=== PATIENT | female | born 1960 | race Caucasian/White ===

== ENCOUNTER 2016-05-08 12:47 | Inpatient (IN) | payer MEDICAID ==
[~2016-05-08] VITALS: Ht 152.4 cm; Wt 116.0 kg
[~2016-05-08 12:47] MED LIST: ASPI-664 PO; ATOR20TA38 PO; CARV3.12 PO; CYCL-319 PO; FURO20TA3 PO; HYDR-902 PO; IBUP800T25 PO; LISI-524 PO; SPIR25TA PO; TICA90TA PO
[2016-05-08] MEDS ORDERED: ALBUTEROL 0.5% (NEB) 2.5 MG/0.5 ML AMP INH STA (17:03)
[2016-05-08] MEDS ORDERED: FUROSEMIDE 40 MG INJ IV STA (17:03)
[2016-05-08] MEDS ORDERED: NITROGLYCERIN 2% 1 GM OINT PKT TD STA (17:03)
--- NOTE | 2016-05-08 17:19 | ERA ---
ER Documentation Chief Complaint Date/Time DATE: 05/08/16 TIME: 17:12 Chief Complaint sob since yesterday HPI 55-year-old female with a history of hypertension, dyslipidemia, congestive heart failure, non-ST segment elevation myocardial infarction status post PCI, asthma and morbid obesity ambulatory to the ED complaining of a 1 day history increasing shortness of breath, orthopnea and exertional dyspnea. Increasing bilateral lower extremity swelling but no pain. Denies chest pain or palpitations. No URI symptoms or cough. Denies abdominal pain, nausea, vomiting, diarrhea or constipation. Denies dysuria, polyuria, hematuria or flank pain. No fevers or chills. She admits to running out of her medications several days ago. ROS All systems reviewed and are negative except as per history of present illness. Medications Home Meds Discontinued Scripts Hydrocodone/Acetaminophen ([place] 10-325 Tablet) 1 Each Tablet, 1 TAB PO Q6H Y for PAIN, #20 TAB Prov:ALYX STORM PA-C 01/12/16 Ibuprofen* (Motrin*) 800 Mg Tab, 800 MG PO Q6, #30 TAB Prov:ALYX STORM PA-C 01/12/16 Cyclobenzaprine Hcl* (Cyclobenzaprine Hcl*) 10 Mg Tablet, 10 MG PO QHS, #20 TAB Prov:ALYX STORM PA-C 01/12/16 Furosemide* (Furosemide*) 20 Mg Tablet, 20 MG PO BID for 90 Days, TAB Prov:DIANA HERMOSILLO 06/30/14 Ticagrelor* (Brilinta*) 90 Mg Tablet, 90 MG PO BID for 90 Days, 3 Refills Prov:DIANA HERMOSILLO 06/30/14 Spironolactone* (Aldactone*) 25 Mg Tab, 25 MG PO DAILY for 90 Days Prov:DIANA HERMOSILLO 06/30/14 Lisinopril* (Zestril*) 10 Mg Tab, 10 MG PO BID for 90 Days Prov:DIANA HERMOSILLO 06/30/14 Carvedilol* (Coreg*) 3.125 Mg Tab, 3.125 MG PO BID for 90 Days Prov:DIANA HERMOSILLO 06/30/14 Aspirin* (Aspirin* EC) 81 Mg Tabec, 81 MG PO DAILY for 90 Days Prov:DIANA HERMOSILLO 06/30/14 Atorvastatin Calcium* (Atorvastatin Calcium*) 20 Mg Tab, 40 MG PO HS for 90 Days Prov:DIANA HERMOSILLO 06/30/14 Allergies Allergies: Coded Allergies: No Known Allergy (Unverified , 05/08/16) PMhx/Soc Reviewed in chart. As per HPI. History of Surgery: Yes (Ceasarean section x 2) Anesthesia Reaction: No Hx Neurological Disorder: No Hx Respiratory Disorders: Yes (asthma) Hx Cardiac Disorders: Yes (cardiac condition/ htn) Hx Psychiatric Problems: No Hx Miscellaneous Medical Probl: Yes Hx Alcohol Use: No Hx Substance Use: No Hx Tobacco Use: No Smoking Status: Never smoker FmHx No coronary artery disease or cancer Physical Exam Vitals Vital Signs Date Time Temp Pulse Resp B/P Pulse Ox O2 Delivery O2 Flow Rate FiO2 05/08/16 18:05 98.3 83 20 155/83 100 Venturi Mask 10.0 05/08/16 17:31 Venti Mask 8 05/08/16 17:22 62 18 100 Nasal Cannula 4.0 05/08/16 16:46 78 18 149/63 96 Room Air 05/08/16 12:57 98.1 77 20 126/71 93 Physical Exam Const: Alert, mild respiratory distress. Head: Atraumatic Eyes: Normal Conjunctiva. Mild periorbital swelling ENT: Normal External Ears, Nose and Mouth. Neck: Full range of motion. Nontender. No stridor. Resp: Breath sounds diminished bilaterally with crackles at the bases. Cardio: Regular rate and rhythm, no murmurs Abd: Soft, obese, non tender, non distended. Normal bowel sounds Skin: No petechiae or rashes Back: No midline or flank tenderness Ext: Bilateral lower extremities: 2+ pitting edema. Neur: Awake and alert. No focal deficit observed. Psych: Normal Mood and Affect. Patient does not appear anxious or depressed. Result Diagram: 05/08/16 1730 05/08/16 1730 Results 24 hrs Laboratory Tests Test 05/08/16 17:30 White Blood Count 7.810^3/ul Red Blood Count 4.0410^6/ul Hemoglobin 12.4g/dl Hematocrit 42.6% Mean Corpuscular Volume 105.4fl Mean Corpuscular Hemoglobin 30.7pg Mean Corpuscular Hemoglobin Concent 29.1g/dl Red Cell Distribution Width 13.6% Platelet Count 69903^3/UL Mean Platelet Volume 11.3fl Neutrophils % 59.2% Lymphocytes % 27.7% Monocytes % 9.8% Eosinophils % 2.3% Basophils % 0.5% Nucleated Red Blood Cells % 0.0/100WBC Neutrophils # 4.610^3/ul Lymphocytes # 2.210^3/ul Monocytes # 0.810^3/ul Eosinophils # 0.210^3/ul Basophils # 0.010^3/ul Nucleated Red Blood Cells # 0.010^3/ul Prothrombin Time 11.9Sec Prothrombin Time Ratio 0.9 INR International Normalized Ratio 0.88 Activated Partial Thromboplast Time 27.3Sec Sodium Level 142mmol/L Potassium Level 4.7mmol/L Chloride Level 101mmol/L Carbon Dioxide Level 35mmol/L Anion Gap 11 Blood Urea Nitrogen 18mg/dl Creatinine 0.67mg/dl Glucose Level 98mg/dl Calcium Level 8.1mg/dl Total Bilirubin 0.2mg/dl Direct Bilirubin 0.00mg/dl Indirect Bilirubin 0.2mg/dl Aspartate Amino Transf (AST/SGOT) 28IU/L Alanine Aminotransferase (ALT/SGPT) 49IU/L Alkaline Phosphatase 150IU/L Troponin I 0.099ng/ml B-Type Natriuretic Peptide 406PG/ML Total Protein 7.4g/dl Albumin 3.7g/dl Globulin 3.70g/dl Albumin/Globulin Ratio 1.00 Current Medications Medications (Trade) Dose Ordered Sig/Valdemar Route PRN Reason Start Time Stop Time Status Last Admin Dose Admin Albuterol (Proventil 0.5% (Neb)) 10 mg ONCE STAT INH 05/08/16 17:03 05/08/16 17:10 DC 05/08/16 17:21 Nitroglycerin (Nitroglycerin 2% Oint) 1 inch ONCE STAT TD 05/08/16 17:03 05/08/16 17:10 DC 05/08/16 17:44 Furosemide (Lasix) 20 mg ONCE STAT IV 05/08/16 17:03 05/08/16 17:10 DC 05/08/16 17:44 Captopril (Capoten) 12.5 mg ONCE STAT PO 05/08/16 17:03 05/08/16 17:04 Cancel Captopril (Capoten) 12.5 mg ONCE ONCE PO 05/08/16 18:00 05/08/16 18:01 DC 05/08/16 17:45 RHYTHM STRIP INTERPRETATION: Time: 17:00. Sinus rhythm. Ventricular rate 64. No ectopy. Indication: Shortness of breath. EKG: Time: 17:15. Sinus rhythm. Ventricular rate 69, normal [place] and QRS intervals. No acute ST segment elevation or depression. No axis deviation or ectopy. EP Impression: Normal EKG IMAGING: PROCEDURE: CR, chest CLINICAL INDICATION: Shortness of breath. TECHNIQUE: AP chest. COMPARISON: Chest, 07/01/2014. FINDINGS: The heart is moderately enlarged with pulmonary venous congestion. There is no acute infiltrate in the lungs. No pleural effusion. IMPRESSION: 1. Moderate cardiomegaly with pulmonary venous congestion. RPTAT: GG .Jose Antonio Forde MD, MD Date Time Electronically viewed and signed by .Jose Antonio Forde MD, MD on 05/08/2016 19:04 .Y/ Procedures/MDM DOCUMENTS REVIEWED: ED nurse, prior ED, prior records ED COURSE: Nebulized albuterol, captopril 12.5 mg orally, nitro paste 1 inch, Lasix 20 mg IV. REEXAMINATION/REEVALUATION: Time: 19:00. Improved but still complaining of dyspnea at rest. MEDICAL DECISION MAKIN-year-old female with a history of hypertension, dyslipidemia, congestive heart failure, non-ST segment elevation myocardial infarction status post PCI, asthma and morbid obesity ambulatory to the ED complaining of a 1 day history increasing shortness of breath, orthopnea and exertional dyspnea. Presentation consistent with acute exacerbation of chronic congestive heart failure. Improved with preload/afterload reduction, nitrates and nebulized albuterol but still with dyspnea at rest. No ischemic EKG changes , elevated troponin, chest pain or other signs of acute coronary syndrome. Doubt pulmonary embolism. Admit to telemetry for diuresis, further evaluation and management. Counseled patient regarding diagnosis, diagnostic results and plan for admission. CALLS/CONSULTS: Time 19:50, Dr. Farmer. PATIENT CARE TRANSITIONED: Time: 19:50, Dr. Farmer. Departure Diagnosis: Primary Impression: Congestive heart failure Qualified Code: I50.9 - Acute on chronic congestive heart failure, unspecified congestive heart failure type Additional Impressions: Acute dyspnea Dyslipidemia Coronary artery disease Qualified Code: I25.10 - Coronary artery disease involving [place] heart without angina pectoris, unspecified vessel or lesion type History of heart artery stent Condition: Serious WLII SYKES MD May 08, 2016 17:19
[2016-05-08 17:38] LABS: ADD SCAN DIFF NO
[2016-05-08 17:39] LABS: BASOPHILS % 0.5 % (0.0-2.0); EOSINOPHILS # 0.2 10^3/ul (0.0-0.5); EOSINOPHILS % 2.3 % (0.0-7.0); HEMATOCRIT 42.6 % (37.0-47.0); HEMOGLOBIN 12.4 g/dl (12.0-16.0); LYMPHOCYTES # 2.2 10^3/ul (0.8-2.9); LYMPHOCYTES % 27.7 % (15.0-51.0); MEAN CORPUSCULAR HEMOGLOBIN 30.7 pg (29.0-33.0); MEAN CORPUSCULAR HGB CONC 29.1 g/dl (32.0-37.0); MEAN CORPUSCULAR VOLUME 105.4 fl (82.0-101.0); MEAN PLATELET VOLUME 11.3 fl (7.4-10.4); MONOCYTE # 0.8 10^3/ul (0.3-0.9); MONOCYTES % 9.8 % (0.0-11.0); NEUTROPHIL # 4.6 10^3/ul (1.6-7.5); NEUTROPHILS % 59.2 % (39.0-77.0); PLATELET COUNT 189 10^3/UL (140-415); RED BLOOD COUNT 4.04 10^6/ul (4.20-5.40); RED CELL DISTRIBUTION WIDTH 13.6 % (11.5-14.5); WHITE BLOOD COUNT 7.8 10^3/ul (4.8-10.8)
[2016-05-08 17:53] LABS: INR 0.88; PROTIME 11.9 Sec (12.2-14.2); PT RATIO 0.9
[2016-05-08 17:54] LABS: ALBUMIN 3.7 g/dl (3.3-4.9); PARTIAL THROMBOPLASTIN TIME 27.3 Sec (25.0-35.0)
[2016-05-08 17:55] LABS: POTASSIUM 4.7 mmol/L (3.5-5.1)
[2016-05-08 17:57] LABS: BILIRUBIN,INDIRECT 0.2 mg/dl (0-1.1); BILIRUBIN,TOTAL 0.2 mg/dl (0.2-1.3); CREATININE 0.67 mg/dl (0.44-1.00); TOTAL PROTEIN 7.4 g/dl (6.1-8.1)
[2016-05-08 17:58] LABS: CALCIUM 8.1 mg/dl (8.4-10.2)
[2016-05-08 18:05] VITALS: TEMP 98.3
[2016-05-08 18:08] LABS: TROPONIN-I 0.099 ng/ml (0.00-0.12)
--- NOTE | 2016-05-08 19:04 | RADRPT ---
PROCEDURE: CR, chest CLINICAL INDICATION: Shortness of breath. TECHNIQUE: AP chest. COMPARISON: Chest, 07/01/2014. FINDINGS: The heart is moderately enlarged with pulmonary venous congestion. There is no acute infiltrate in the lungs. No pleural effusion. IMPRESSION: 1. Moderate cardiomegaly with pulmonary venous congestion. RPTAT: GG .Jose Antonio Forde MD, MD Date Time Electronically viewed and signed by .Jose Antonio Forde MD, MD on 05/08/2016 19:04 .Y/
[2016-05-08] MEDS ORDERED: ACETAMINOPHEN 325 MG TAB PO PRN ×2 (20:30→21:30)
[2016-05-08] MEDS ORDERED: ONDANSETRON 4 MG INJ IV PRN (20:30)
--- NOTE | 2016-05-08 20:53 | HP ---
Date/Time of Note Date/Time of Note DATE: 05/08/16 TIME: 20:53 Assessment/Plan VTE Prophylaxis VTE Prophylaxis Intervention: other (Lovenox) Assessment/Plan Assessment/Plan 1) Congestive heart failure Qualified Code: I50.9 - Acute on chronic congestive heart failure, unspecified congestive heart failure type - Admit to Telemetry - Diuresis - AM Labs: CBC, BMP, Magnesium - Consider Cardiology Consult 2) Acute dyspnea - Expect continued improvement with continued diuresis - Patient is educated to always take her medications as prescribed and t not let them run out. 3) Fatigue, severe, concerning for ND since it is combined with upper back pain - Serial Troponins - TSH in AM 4) Coronary artery disease Qualified Code: I25.10 - Coronary artery disease involving [place] heart without angina pectoris, unspecified vessel or lesion type History of heart artery stent - CHD Profile in AM 5) Morbid Obesity HPI/ROS Admit Date/Time Admit Date/Time 02/07/172001 Hx of Present Illness Chief Complaint: Shortness of Breath HPI: Patient presented to the ER with increasing SOB since yesterday. She has been out of her medications for 3 to 4 days. Currently, she feels a little better since being treated in the ER, but she mentions that she is having pain in her upper back and that she feels extremely sleepy. However, she is not able to tell me about her heart problems. When I asked her if she had stents, placed through her groin and into the heart, she said yes. When I asked if she had been having any chest pain before that, she said no. Since patient is not clear about her history, I will use that obtained by the ER physician: hypertension, dyslipidemia, congestive heart failure, non-ST segment elevation myocardial infarction status post PCI, asthma and morbid obesity. Patient had complained about orthopnea and exertional dyspnea and increasing leg swelling as well as the SOB. She had no other complaints or concerns. Prior to my arrival in the ED, she was treated with Nebulized albuterol, captopril 12.5 mg orally, nitro paste 1 inch, Lasix 20 mg IV. ROS General: Admits: Denies: Fever, Chills, Poor Appetite, Generalized Body Aches Eyes: Admits: Denies: Blurry Vision, Double Vision HENT: Denies: Ear Pain/Pressure, Runny/Stuffy Nose, Sore Throat Cardiovascular: Admits: Leg Swelling Denies: Chest Pain, Palpitations Pulmonary: Admits: Shortness of Breath (improved) Denies: Cough, Wheeze, Gastrointestinal: Admits: Denies: Abdominal Pain, Nausea, Vomiting, Diarrhea Urogenital: Admits: Denies: Burning with Urination, Urinary Frequency Musculoskeletal: Admits: Denies: Joint Pain, Joint Swelling, Muscle Pain Neurological: Admits: Denies: Headache, Dizziness, Numbness, Tingling, Shooting Pains Integumentary: Admits: Denies: Rash, Itch PMH/Family/Social Past Medical History Asthma; HTN; "Cardiac Condition" Past Surgical History Section x 2 Family History Significant Family History: other (No CAD or Cancer) Social History Smoking Status: Never smoker Exam/Review of Systems Vital Signs Vitals Vital Signs Date Time Temp Pulse Resp B/P Pulse Ox O2 Delivery O2 Flow Rate FiO2 05/08/16 20:02 72 18 164/94 99 05/08/16 18:05 98.3 Venturi Mask 10.0 Exam Exam General: Morbidly obese Bulgarian-speaking female in no acute distress with O2 via NC in place. Eyes: Sclera White, EOMI HENT: Normocephalic/Atraumatic, External Ears/Nose Normal, Moist Mucus Membranes Neck: Supple, Trachea Midline Cardiovascular: Normal Rate, Normal Rhythm, Normal S1 and S2, No Murmur, No Extra Sounds Pulmonary: Clear to Auscultation Bilaterally, but decreased airflow throughout , minimal airflow appreciated in bases. Normal Respiratory Effort, No Rales, Rhonchi or Wheezes Gastrointestinal: Normoactive Bowel Sounds, Soft, Non-Tender/Non-Distended, No Hepatosplenomegaly Appreciated, No Pulsatile Masses Urogenital: Deferred Musculoskeletal: Normal Muscle Bulk and Tone Neurological: CN II - XII Grossly Intact, Non-Focal, Speech Normal Integumentary: Normal Moisture and Temperature, Good Turgor, No Jaundice, No Rash Lymphatic: No Cervical Lymphadenopathy Psychiatric: Appropriate Mood and Affect, Good Eye Contact Labs Result Diagram: 05/08/16172905/08/161729 Medications Medications Home Meds Discontinued Scripts Hydrocodone/Acetaminophen ([place] 10-325 Tablet) 1 Each Tablet, 1 TAB PO Q6H Y for PAIN, #20 TAB Prov:ALYX STORM PA-C 01/12/16 Ibuprofen* (Motrin*) 800 Mg Tab, 800 MG PO Q6, #30 TAB Prov:ALYX STORM PA-C 01/12/16 Cyclobenzaprine Hcl* (Cyclobenzaprine Hcl*) 10 Mg Tablet, 10 MG PO QHS, #20 TAB Prov:ALYX STORM PA-C 01/12/16 Furosemide* (Furosemide*) 20 Mg Tablet, 20 MG PO BID for 90 Days, TAB Prov:DIANA HERMOSILLO 06/30/14 Ticagrelor* (Brilinta*) 90 Mg Tablet, 90 MG PO BID for 90 Days, 3 Refills Prov:DIANA HERMOSILLO 06/30/14 Spironolactone* (Aldactone*) 25 Mg Tab, 25 MG PO DAILY for 90 Days Prov:DIANA HERMOSILLO 06/30/14 Lisinopril* (Zestril*) 10 Mg Tab, 10 MG PO BID for 90 Days Prov:DIANA HERMOSILLO 06/30/14 Carvedilol* (Coreg*) 3.125 Mg Tab, 3.125 MG PO BID for 90 Days Prov:DIANA HERMOSILLO 06/30/14 Aspirin* (Aspirin* EC) 81 Mg Tabec, 81 MG PO DAILY for 90 Days Prov:DIANA HERMOSILLO 06/30/14 Atorvastatin Calcium* (Atorvastatin Calcium*) 20 Mg Tab, 40 MG PO HS for 90 Days Prov:DIANA HERMOSILLO 06/30/14 Current Medications Medications (Trade) Dose Ordered Sig/Valdemar Route PRN Reason Start Time Stop Time Status Last Admin Dose Admin Albuterol (Proventil 0.5% (Neb)) 10 mg ONCE STAT INH 05/08/16 17:03 05/08/16 17:10 DC 05/08/16 17:21 Nitroglycerin (Nitroglycerin 2% Oint) 1 inch ONCE STAT TD 05/08/16 17:03 05/08/16 17:10 DC 05/08/16 17:44 Furosemide (Lasix) 20 mg ONCE STAT IV 05/08/16 17:03 05/08/16 17:10 DC 05/08/16 17:44 Captopril (Capoten) 12.5 mg ONCE STAT PO 05/08/16 17:03 05/08/16 17:04 Cancel Captopril (Capoten) 12.5 mg ONCE ONCE PO 05/08/16 18:00 05/08/16 18:01 DC 05/08/16 17:45 Procedures Procedures Laboratory Tests Test 05/08/16 17:30 White Blood Count 7.810^3/ul Red Blood Count 4.0410^6/ul Hemoglobin 12.4g/dl Hematocrit 42.6% Mean Corpuscular Volume 105.4fl Mean Corpuscular Hemoglobin 30.7pg Mean Corpuscular Hemoglobin Concent 29.1g/dl Red Cell Distribution Width 13.6% Platelet Count 45373^3/UL Mean Platelet Volume 11.3fl Neutrophils % 59.2% Lymphocytes % 27.7% Monocytes % 9.8% Eosinophils % 2.3% Basophils % 0.5% Nucleated Red Blood Cells % 0.0/100WBC Neutrophils # 4.610^3/ul Lymphocytes # 2.210^3/ul Monocytes # 0.810^3/ul Eosinophils # 0.210^3/ul Basophils # 0.010^3/ul Nucleated Red Blood Cells # 0.010^3/ul Prothrombin Time 11.9Sec Prothrombin Time Ratio 0.9 INR International Normalized Ratio 0.88 Activated Partial Thromboplast Time 27.3Sec Sodium Level 142mmol/L Potassium Level 4.7mmol/L Chloride Level 101mmol/L Carbon Dioxide Level 35mmol/L Anion Gap 11 Blood Urea Nitrogen 18mg/dl Creatinine 0.67mg/dl Glucose Level 98mg/dl Calcium Level 8.1mg/dl Total Bilirubin 0.2mg/dl Direct Bilirubin 0.00mg/dl Indirect Bilirubin 0.2mg/dl Aspartate Amino Transf (AST/SGOT) 28IU/L Alanine Aminotransferase (ALT/SGPT) 49IU/L Alkaline Phosphatase 150IU/L Troponin I 0.099ng/ml B-Type Natriuretic Peptide 406PG/ML Total Protein 7.4g/dl Albumin 3.7g/dl Globulin 3.70g/dl Albumin/Globulin Ratio 1.00 RHYTHM STRIP INTERPRETATION: Time: 17:00. Sinus rhythm. Ventricular rate 64. No ectopy. Indication: Shortness of breath. (Interpreted by ER Physician) EKG: Time: 17:15. Sinus rhythm. Ventricular rate 69, normal [place] and QRS intervals. No acute ST segment elevation or depression. No axis deviation or ectopy. EP Impression: Normal EKG (Interpreted by ER Physician) IMAGING: PROCEDURE: CR, chest CLINICAL INDICATION: Shortness of breath. TECHNIQUE: AP chest. COMPARISON: Chest, 07/01/2014. FINDINGS: The heart is moderately enlarged with pulmonary venous congestion. There is no acute infiltrate in the lungs. No pleural effusion. IMPRESSION: 1. Moderate cardiomegaly with pulmonary venous congestion. ESDRAS BUENROSTRO DO May 08, 2016 20:53 RHYTHM STRIP INTERPRETATION: Time: 17:00. Sinus rhythm. Ventricular rate 64. No ectopy. Indication: Shortness of breath. EKG: Time: 17:15. Sinus rhythm. Ventricular rate 69, normal SC and QRS intervals. No acute ST segment elevation or depression. No axis deviation or ectopy. EP Impression: Normal EKG IMAGING: PROCEDURE: CR, chest CLINICAL INDICATION: Shortness of breath. TECHNIQUE: AP chest. COMPARISON: Chest, 07/01/2014. FINDINGS: The heart is moderately enlarged with pulmonary venous congestion. There is no acute infiltrate in the lungs. No pleural effusion. IMPRESSION: 1. Moderate cardiomegaly with pulmonary venous congestion. ESDRAS BUENROSTRO DO May 08, 2016 20:53 RHYTHM STRIP INTERPRETATION: Time: 17:00. Sinus rhythm. Ventricular rate 64. No ectopy. Indication: Shortness of breath. EKG: Time: 17:15. Sinus rhythm. Ventricular rate 69, normal SC and QRS intervals. No acute ST segment elevation or depression. No axis deviation or ectopy. EP Impression: Normal EKG IMAGING: PROCEDURE: CR, chest CLINICAL INDICATION: Shortness of breath. TECHNIQUE: AP chest. COMPARISON: Chest, 07/01/2014. FINDINGS: The heart is moderately enlarged with pulmonary venous congestion. There is no acute infiltrate in the lungs. No pleural effusion.
[2016-05-08] MEDS ORDERED: NITROGLYCERIN (SL) 0.4 MG TAB SL PRN (21:30)
[2016-05-08] MEDS ORDERED: HYDROCODONE/APAP (5/325) TAB PO PRN (21:30)
[2016-05-08] MEDS ORDERED: NACL 0.9% 3 ML SYG IV SCH (21:30)
[2016-05-08] MEDS ORDERED: METOCLOPRAMIDE 10 MG INJ IV PRN (21:30)
[2016-05-08] MEDS ORDERED: LORAZEPAM 2 MG INJ IV PRN (21:30)
[2016-05-08] MEDS ORDERED: morphine 2 MG INJ IV PRN (21:30)
[2016-05-08] MEDS: FAMOTIDINE 20 MG TAB PO SCH (22:06)
[2016-05-08] MEDS ORDERED: FUROSEMIDE 20 MG INJ IV ONE (22:30)
[2016-05-08 23:44] VITALS: PULSE 67
[2016-05-09] VITALS (14 sets, daily range): BP systolic 116–138; BP diastolic 58–67; PULSE 40–99; RESP 16–20; Ht 152.4 cm; Wt 116.0 kg
[2016-05-09] MEDS ORDERED: FUROSEMIDE 20 MG INJ IM ONE (08:00)
[2016-05-09 08:15] LABS: ADD SCAN DIFF NO
[2016-05-09] MEDS: ENOXAPARIN 40 MG/0.4 ML SYG SC SCH (08:21)
[2016-05-09] MEDS: FAMOTIDINE 20 MG TAB PO SCH ×2 (08:21→21:18)
[2016-05-09 08:22] LABS: ABNORMAL IP MESSAGE 1; BASOPHIL # 0.1 10^3/ul (0.0-0.1); BASOPHILS % 0.6 % (0.0-2.0); EOSINOPHILS # 0.1 10^3/ul (0.0-0.5); EOSINOPHILS % 0.8 % (0.0-7.0); HEMATOCRIT 46.1 % (37.0-47.0); HEMOGLOBIN 12.9 g/dl (12.0-16.0); LYMPHOCYTES # 1.7 10^3/ul (0.8-2.9); LYMPHOCYTES % 18.6 % (15.0-51.0); MEAN CORPUSCULAR HEMOGLOBIN 29.6 pg (29.0-33.0); MEAN CORPUSCULAR VOLUME 105.7 fl (82.0-101.0); MEAN PLATELET VOLUME 11.5 fl (7.4-10.4); MONOCYTE # 0.6 10^3/ul (0.3-0.9); MONOCYTES % 6.4 % (0.0-11.0); NEUTROPHIL # 6.5 10^3/ul (1.6-7.5); NEUTROPHILS % 73.3 % (39.0-77.0); PLATELET COUNT 215 10^3/UL (140-415); RED BLOOD COUNT 4.36 10^6/ul (4.20-5.40); RED CELL DISTRIBUTION WIDTH 13.9 % (11.5-14.5); WHITE BLOOD COUNT 8.9 10^3/ul (4.8-10.8)
[2016-05-09 08:34] LABS: POTASSIUM 5.3 mmol/L (3.5-5.1)
[2016-05-09 08:36] LABS: CREATININE 0.69 mg/dl (0.44-1.00)
[2016-05-09 08:37] LABS: CALCIUM 8.7 mg/dl (8.4-10.2)
[2016-05-09 09:24] LABS: THYROID STIMULATING HORMONE 1.19 MIU/L (0.465-4.680)
--- NOTE | 2016-05-09 15:20 | CONS ---
Date/Time of Note Date/Time of Note DATE: 05/09/16 TIME: 15:15 Assessment/Plan Assessment/Plan Additional Assessment/Plan Chest x-ray was reviewed from today which is showing cardiomegaly with pulmonary edema. Assessment recommendations; 1. Patient admitted for D compensated CHF, out of medication for the last couple of days. Likely a contributing factor. 2. Morbid obesity. 3. Likely undiagnosed sleep apnea. Continue current treatment. She will need to have a sleep study done on outpatient basis. Start BiPAP overnight. Consultation Date/Type/Reason Admit Date/Time 02/07/172001 Date of Consultation: May 09, 2016 Type of Consultation: Pulmonary Reason for Consultation Pulmonary consultation requested for evaluation of shortness of breath. Next History presenting; patient is a 54-year-old lady who came into the emergency room yesterday with a few days history of increasing shortness of breath. Patient ran out of her medications 4 days ago. But she denies any chest pain, wheezing. Any fever or chills. Any cough or sputum production. By the time I saw the patient , she is sitting in a room in a chair. According to her she, is somewhat better since admission. Past medical history; 1. Morbid obesity. 2. CHF. 3. Likely underlying sleep apnea. 4. Hypertension. 5. History of 2. Medications; were reviewed. Allergies; are none. Next Social history; patient never smoked, no history of alcohol or drug abuse. Next Family history; patient has 2 children. Various family members of diabetes and hypertension in the family. Occupational history; patient is disabled. Review of systems; denies any headache, visual changes. Any sore throat, high fever, chills. Any hearing loss. Any seizures. Any chest pain, wheezing. Denies any sputum production. Complains of orthopnea. Come to the weight gain. Denies any abdominal pain, nausea vomiting. Any melena hematochezia. . Denies any urinary symptoms. Does complain of significant daytime sleepiness. General exam; young woman morbidly obese currently in no distress awake and alert. Social History Smoking Status: Never smoker Exam/Review of Systems Vital Signs Vitals Vital Signs Date Time Temp Pulse Resp B/P Pulse Ox O2 Delivery O2 Flow Rate FiO2 05/09/16 12:21 79 05/09/16 11:52 97.8 20 116/59 92 05/09/16 07:41 Nasal Cannula 3.0 Intake and Output 05/08/16 05/08/16 05/09/16 15:00 23:00 07:00 Intake Total 300 ml Balance 300 ml Exam HEENT examination; supple neck, JVD difficult to see because of short neck. No thyromegaly, no neck masses. No lymphadenopathy. Pharynx is clear. Patient has good dentition. Pharyngeal aperture is very small. Pupils are equal and reactive to light bilaterally. She has bilateral cataracts present patient also has bilateral pterygium present Chest examination; diminished breath sounds throughout. No additional. S1-S2 audible, no murmurs. Regular rhythm. Abdomen examination; grossly protuberant. Nontender. Bowel sounds audible. Extremity exam; no peripheral edema. No clubbing. Pulses 2+ bilaterally. 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 There is no motor deficit. Results Result Diagram: 05/09/16 0758 05/09/16 0758 Results 24 hrs Laboratory Tests Test 05/08/16 17:30 05/09/16 00:33 05/09/16 07:58 White Blood Count 7.8 8.9 Red Blood Count 4.04 L 4.36 Hemoglobin 12.4 12.9 Hematocrit 42.6 46.1 Mean Corpuscular Volume 105.4 H 105.7 H Mean Corpuscular Hemoglobin 30.7 29.6 Mean Corpuscular Hemoglobin Concent 29.1 L 28.0 L Red Cell Distribution Width 13.6 13.9 Platelet Count 189 215 Mean Platelet Volume 11.3 H 11.5 H Neutrophils % 59.2 73.3 Lymphocytes % 27.7 18.6 Monocytes % 9.8 6.4 Eosinophils % 2.3 0.8 Basophils % 0.5 0.6 Nucleated Red Blood Cells % 0.0 0.0 Neutrophils # 4.6 6.5 Lymphocytes # 2.2 1.7 Monocytes # 0.8 0.6 Eosinophils # 0.2 0.1 Basophils # 0.0 0.1 Nucleated Red Blood Cells # 0.0 0.0 Prothrombin Time 11.9 L Prothrombin Time Ratio 0.9 INR International Normalized Ratio 0.88 Activated Partial Thromboplast Time 27.3 Sodium Level 142 143 Potassium Level 4.7 5.3 H Chloride Level 101 100 Carbon Dioxide Level 35 H 34 H Anion Gap 11 14 Blood Urea Nitrogen 18 21 H Creatinine 0.67 0.69 Glucose Level 98 125 Calcium Level 8.1 L 8.7 Total Bilirubin 0.2 Direct Bilirubin 0.00 Indirect Bilirubin 0.2 Aspartate Amino Transf (AST/SGOT) 28 Alanine Aminotransferase (ALT/SGPT) 49 Alkaline Phosphatase 150 H Troponin I 0.099 0.123 *H 0.080 B-Type Natriuretic Peptide 406 H Total Protein 7.4 Albumin 3.7 Globulin 3.70 H Albumin/Globulin Ratio 1.00 Magnesium Level 2.0 Triglycerides Level 184 H Cholesterol Level 175 LDL Cholesterol, Calculated 80 HDL Cholesterol 58 Cholesterol/HDL Ratio 3.0 Thyroid Stimulating Hormone (TSH) 1.190 Medications Medications Current Medications Lorazepam (Ativan) 0.5 mg Q6H PRN IV ANXIETY; Start 05/08/16 at 21:30 Metoclopramide HCl (Reglan) 10 mg Q6H PRN IV NAUSEA AND/OR VOMITING; Start at 21:30 Nitroglycerin (Nitroglycerin (Sl Tab) 0.4 Mg) 1 tab Q5M PRN SL CHEST PAIN; Start 05/08/16 at 21:30 Acetaminophen (Tylenol Tab) 650 mg Q6H PRN PO PAIN LEVEL 1-3 OR FEVER; Start at 21:30 Acetaminophen/ Hydrocodone Bitart ([place] (5/325)) 1 tab Q6H PRN PO PAIN LEVEL 4 -6; Start 05/08/16 at 21:30 Morphine Sulfate (morphine) 2 mg Q4H PRN IV PAIN LEVEL 7-10; Start 05/08/16 at 21:30 Famotidine (Pepcid) 20 mg Q12 PO Last administered on 05/09/16 08:21; Admin Dose 20 MG; Start 05/08/16 at 21:30 Enoxaparin Sodium (Lovenox) 40 mg DAILY SC Last administered on 05/09/16 08:21 ; Admin Dose 40 MG; Start 05/09/16 at 09:00 FEDE MCGRATH May 09, 2016 15:20
[2016-05-09] MEDS ORDERED: ALBUTEROL 0.083% (NEB) 2.5 MG/3 ML AMP HHN PRN (16:00)
--- NOTE | 2016-05-09 16:35 | PN ---
DATE: 05/09/2016 SUBJECTIVE DATA: The patient still has dyspnea. Remains on supplemental oxygen. OBJECTIVE DATA: VITAL SIGNS: Temperature 97.8, pulse rate 79, respiratory rate 20, blood pressure 116/59, oxygen saturation 98% on low flow O2. GENERAL: This is a morbidly obese female lying in bed, somnolent. HEENT: Normocephalic and atraumatic. Eyes: Anicteric sclerae. Conjunctivae clear. ENT: Nasal septum is midline. Oral mucosa is dry. NECK: Short with increased neck circumference. Unable to visualize any neck veins. CARDIAC: Regular rate and rhythm with a grade II/ systolic ejection murmur heard at the left sternal border. ABDOMEN: Soft, nontender and nondistended. Bowel sounds hypoactive in all 4 quadrants. GENITOURINARY: Deferred. EXTREMITIES: No cyanosis, no clubbing. Bilateral lower extremity 1+ pitting edema. Peripheral pulses palpable. NEUROLOGIC: The patient is somnolent. Wakes up to call and answers questions. No focal deficits. LABORATORY AND DIAGNOSTIC DATA: WBC 8.9, hemoglobin 12.9, hematocrit 46.1, platelet count 215. Sodium 143, potassium 5.3, chloride 100, carbon dioxide 34 , anion gap 14, BUN 21, creatinine 0.61, glucose 126, calcium 8.7, magnesium 2.0. ASSESSMENT AND PLAN: 1. Acute respiratory failure. Hypoxic. Most probably secondary to underlying congestive heart failure exacerbation, diastolic dysfunction. The patient will be provided with adequate diuresis. The patient will be maintained on supplemental oxygen. She will also be started on inhaled bronchodilators around the clock and on a p.r.n. basis for any episodes of shortness of breath. A pulmonary consult will be obtained. 2. Congestive heart failure exacerbation. Acute on chronic diastolic dysfunction. Latest 2D echocardiogram from 06/28/2014 showing an ejection fraction of 60% and stage I diastolic dysfunction. The patient's chest x-ray is suggestive of pulmonary vascular congestion. The patient will be diuresed adequately. A cardiology consult will be obtained on this patient. 3. Possible underlying obstructive sleep apnea. Provided the patient's body habitus as well as increased somnolence, the patient most probably has underlying obstructive sleep apnea. The patient also has a BMI of 49.9 kg/ meter squared. The patient will be provided with noninvasive positive-pressure ventilation. The patient will be evaluated by pulmonology. 4. Elevated troponins. Troponins are not significantly elevated. Could be a type 2 event. The patient has prior history of coronary artery disease, status post stenting in 06/2014 The patient will be maintained on aspirin. A 2D echocardiogram will be obtained. Cardiology consult will be obtained. 5. Coronary artery disease. Status post stenting of the ostium and the proximal ramus with a bare metal stent in 06/2014. Continue aspirin. Obtain 2- D echocardiogram. Obtain cardiology evaluation. 6. Essential hypertension. The patient will be maintained on antihypertensives. The patient's blood pressure is well controlled at this time. 7. Morbid obesity. BMI of 49.9 kg/meter squared. Hemoglobin A1c will be obtained. Fasting lipid panel will be obtained. The patient will be continued on statins. 8. Fluid, electrolytes and nutrition. The patient will be continued on a low cholesterol diet. 9. Deep venous thrombosis prophylaxis with subcutaneous Lovenox. 10. Gastrointestinal prophylaxis with histamine 2 receptor blockers. PLAN: Obtain 2D echocardiogram. Trend troponins. Await cardiology evaluation. Call pulmonary consult. Case discussed with Dr. Troy. SHARLENE TROY MD, AM/GREG Conf#: [id number] DID#: [id number] YAMILETH
[2016-05-09] MEDS: FUROSEMIDE 40 MG INJ IV SCH (18:14)
[2016-05-09] MEDS: ALBUTEROL 0.083% (NEB) 2.5 MG/3 ML AMP HHN SCH (19:49)
[2016-05-09] MEDS: ATORVASTATIN 40 MG TAB PO SCH (21:18)
[2016-05-10] VITALS (15 sets, daily range): BP systolic 99–126; BP diastolic 47–65; PULSE 49–78; RESP 12–20
[2016-05-10] MEDS: FUROSEMIDE 40 MG INJ IV SCH (05:54)
[2016-05-10 07:14] LABS: ADD SCAN DIFF NO
[2016-05-10 07:23] LABS: ABNORMAL IP MESSAGE 1; BASOPHIL # 0.1 10^3/ul (0.0-0.1); BASOPHILS % 0.7 % (0.0-2.0); EOSINOPHILS # 0.2 10^3/ul (0.0-0.5); HEMATOCRIT 44.9 % (37.0-47.0); HEMOGLOBIN 12.7 g/dl (12.0-16.0); LYMPHOCYTES # 1.7 10^3/ul (0.8-2.9); LYMPHOCYTES % 23.7 % (15.0-51.0); MEAN CORPUSCULAR HEMOGLOBIN 29.4 pg (29.0-33.0); MEAN CORPUSCULAR HGB CONC 28.3 g/dl (32.0-37.0); MEAN CORPUSCULAR VOLUME 103.9 fl (82.0-101.0); MEAN PLATELET VOLUME 11.9 fl (7.4-10.4); MONOCYTE # 0.5 10^3/ul (0.3-0.9); NEUTROPHIL # 4.6 10^3/ul (1.6-7.5); NEUTROPHILS % 65.5 % (39.0-77.0); PLATELET COUNT 201 10^3/UL (140-415); RED BLOOD COUNT 4.32 10^6/ul (4.20-5.40); RED CELL DISTRIBUTION WIDTH 13.8 % (11.5-14.5)
[2016-05-10 07:32] LABS: POTASSIUM 4.6 mmol/L (3.5-5.1)
[2016-05-10 07:35] LABS: CREATININE 0.63 mg/dl (0.44-1.00)
[2016-05-10 07:36] LABS: CALCIUM 8.7 mg/dl (8.4-10.2)
[2016-05-10 07:39] LABS: CHOL/HDL RATIO 3.6 RATIO; MAGNESIUM 2.1 mg/dl (1.7-2.5); PHOSPHORUS 4.3 mg/dl (2.5-4.9)
[2016-05-10 07:47] LABS: CK-MB 1.62 ng/ml (0.0-2.4)
[2016-05-10 07:50] LABS: TROPONIN-I 0.125 ng/ml (0.00-0.12)
[2016-05-10 08:09] LABS: THYROID STIMULATING HORMONE 2.45 MIU/L (0.465-4.680)
[2016-05-10] MEDS: ALBUTEROL 0.083% (NEB) 2.5 MG/3 ML AMP HHN SCH ×3 (08:40→21:39)
[2016-05-10 08:41] LABS: AADO2 Arterial 27.2 mmHg (7.0-24.0); Allen Test ACCEPTAB; Arterial Base Excess 7.3 mmol/L (-3.0-3); Arterial COHb 0.8 % (0.0-3.0); Arterial Fraction of Oxyhgb 84.8 % (93.0-99.0); Arterial HCO3 34.6 mmol/L (22.0-26.0); Arterial MetHb 0.3 % (0.0-1.5); Arterial Total Hemglobin 14.3 g/dl (12.0-18.0); MODE ROOM AIR
[2016-05-10] MEDS: ASPIRIN (EC) 81 MG TAB PO SCH (08:54)
[2016-05-10] MEDS: FAMOTIDINE 20 MG TAB PO SCH (08:54)
[2016-05-10] MEDS: LISINOPRIL 5 MG TAB PO SCH (08:54)
[2016-05-10 08:57] LABS: CK-MB 1.45 ng/ml (0.0-2.4)
[2016-05-10] MEDS: ENOXAPARIN 40 MG/0.4 ML SYG SC SCH (08:57)
[2016-05-10 09:00] LABS: TROPONIN-I 0.118 ng/ml (0.00-0.12)
--- NOTE | 2016-05-10 10:31 | RADRPT ---
Echocardiogram Report Patient Name: ALEKS FERNANDEZ Gender: Female Date: 1960 Study Date: 10-May-2016 Warranty Administrator: Misty Damon [facility] Location: 5545 Ref. Physician: SHARLENE CHOWDHURY Quality: Adequate Procedures: Transthoracic echocardiogram with complete 2D, M-Mode, and doppler examination. Indications: Evaluate Left Ventricular function. 2D/M Mode Doppler Measurement Value Normal Ranges Measurement Value Normal Ranges LVIDd 2D 4.6 3.5 - 5.6 cm AV Peak Timothy 2.2 m/sec LVIDs 2D 2.9 2.1 - 4.1 cm AV Peak PG 19.9 mmHg LVPWd 2D 1.1 0.6 - 1.1 cm LVOT Peak Timothy 1.5 m/sec IVSd 2D 1.0 0.6 - 1.1 cm LVOT Peak PG 9.2 mmHg AoR Diam 2D 2.2 2.0 - 3.7 cm MV E Peak Timothy 0.9 m/sec EDV 2D 98.5 cm3 MV A Peak Timothy 0.9 m/sec ESV 2D 25.2 cm3 MV E/A 1.0 LA Dimen 2D 2.2 2.3 - 4.0 cm MV Decel Time 263 msec MV Decel Gilliam 3 MV E/A 1.0 TR Peak Timothy 2.9 m/sec TR Peak PG 34.2 mmHg RVSP 37.0 mmHg Findings Left Ventricle: Normal left ventricular systolic function. Normal left ventricular cavity size. Mild concentric left ventricular hypertrophy. Ejection fraction is visually estimated at 60 %. Tissue Doppler/Mitral Doppler indices are consistent with impaired relaxation (Stage I diastolic dysfunction). Right Ventricle: Normal right ventricular size. Normal right ventricular systolic function. Left Atrium: The left atrium is normal in size. Right Atrium: The right atrium is normal in size. Mitral Valve: Normal appearance and function of the mitral valve with trace physiologic regurgitation. Aortic Valve: Aortic valve Max velocity 2.29 m/sec. Max PG 20.90 mmHg. Aortic sclerosis without stenosis. Aortic cusps appear mildly calcified. Trace aortic valve regurgitation. Tricuspid Valve: Normal appearance of the tricuspid valve. Estimated peak PA systolic pressure 44 mmHg. There is mild tricuspid regurgitation. Pulmonic Valve: Normal pulmonic valve appearance. Pericardium: Normal pericardium with no significant pericardial effusion. Aorta: Normal aortic root. IVC: Normal size and normal respiratory collapse consistent with normal right atrial pressure. Conclusions 1.Normal left ventricular systolic function. Normal left ventricular cavity size. Mild concentric left ventricular hypertrophy. Ejection fraction is visually estimated at 60 %. Tissue Doppler/Mitral Doppler indices are consistent with impaired relaxation (Stage I diastolic dysfunction). 2.Normal appearance and function of the mitral valve with trace physiologic regurgitation. 3.Aortic valve Max velocity 2.29 m/sec. Max PG 20.90 mmHg. Aortic sclerosis without stenosis. Aortic cusps appear mildly calcified. Trace aortic valve regurgitation. 4.Normal appearance of the tricuspid valve. Estimated peak PA systolic pressure 44 mmHg. There is mild tricuspid regurgitation. 5.Normal size and normal respiratory collapse consistent with normal right atrial pressure. Electronically Signed By: Gio Mukherjee 10-May-2016 10:30:14 -0700 Patient Name: ALEKS FERNANDEZ Study Date: 10-May-2016 [id number]
[2016-05-10] MEDS: ACETAZOLAMIDE 500 MG INJ IV SCH (11:05)
--- NOTE | 2016-05-10 11:10 | CONS ---
DATE OF ADMISSION: 05/08/2016 DATE OF CONSULTATION: 05/10/2016 REFERRING PHYSICIAN: Dr. Anmol Li REASON FOR CONSULTATION: Coronary artery disease, congestive heart failure, abnormal troponin. CHIEF COMPLAINT: Headache, shortness of breath, left shoulder pain. HISTORY OF PRESENT ILLNESS: Thank you for this referral. The patient is an extremely poor historia n. Extensive review of the old chart. This is a 55-year-old female with morbid obesity, c oronary artery disease, status post [place], status post PCI, diabetes, who is extremely poor compliance. The patient apparently takes no medication at this point. She came in because she has had headach es, shoulder pain, and shortness of breath. The patient cannot describe the pain and discomfort wel l to me. Currently is feeling better and just complaining of a headache. PAST MEDICAL HISTORY: History of coronary artery disease, status post ACS. Status post percutaneou s coronary intervention of her ramus intermedius using a bare metal stent in 2014, a history of hype rtension, dyslipidemia, morbid obesity, diabetes. History of congestive heart failure, history of sl eep apnea. SOCIAL HISTORY: The patient does not smoke or drink. MEDICATIONS AT HOME: The patient does not take any medications. She occasionally takes aspirin, bu t even that she does not take on a regular basis. FAMILY HISTORY: She has 2 children. Multiple family members with diabetes, but no early coronary a rtery disease. REVIEW OF SYSTEMS: As above mentioned. Denied all others. PHYSICAL EXAMINATION: VITAL SIGNS: Temperature 97.4, heart rate 56, blood pressure 117/57, respiratory rate of 20, satura ting 91%. HEENT: Normocephalic, atraumatic. Pupils are equal. CARDIOVASCULAR: Regular rate and rhythm. Systolic murmur. PULMONARY: With no wheezes. GASTROINTESTINAL: Obese, soft, nontender. EXTREMITIES: With no significant lower extremity edema. NEUROLOGIC: Awake and alert. PSYCHIATRIC: Appears to be calm. LABORATORY: WBC of 7, hemoglobin 12.7, platelets of 201. Sodium 144, potassium 4.6, BUN of 19, cre atinine 0.63, glucose of 141. Hemoglobin A1c of 6.9. Troponin has been 0.123, 0.08, 0.123, 0.118. CK has been around 81 only. MB fraction of 1.6 to 1.4. EKG normal sinus rhythm, normal ECG. Cholesterol 176, total LDL of 94, HDL of 48, triglycerides jessy vated at 170. TSH 2.45. Review of the old chart showed the cardiac catheterization 2 years ago in 2014, showed the left main is a large vessel, normal. LAD has 30% stenosis. . The ramus is a moderate sized vessel, ve ry tortuous proximally, ostially had 80% stenosis, which was successfully stented using a 2 x 18-mm bare metal stent. Echocardiogram done on June 27 shows an ejection fraction of 60%, with pulmonary hypertension with a PA pressure of 53 mmHg. Chest x-ray was personally reviewed and showed congestive heart failure. ASSESSMENT AND PLAN: 1. Mildly abnormal troponin, most likely related to congestive heart failure. 2. Pulmonary hypertension, probably a combination of congestive heart failure, as well as pulmonary disease, possibly with sleep apnea versus others. 3. Hypertension. 4. Coronary artery disease, status post myocardial infarction. 5. History of percutaneous coronary intervention. 6. Dyslipidemia. 7. Diabetes. 8. Poor compliance with medication. RECOMMENDATIONS: The patient appears to be extremely poor compliance. Importance of compliance wit h medication was explained to the patient. The patient was started appropriately on aspirin, RITA in hibitor, carvedilol and statins. IV diuretics will be continued. Consider a sleep apnea workup or CPAP overnight. I will change the Lasix to Diamox. Follow up with the pulmonary recommendations. Given the normal EKG and very minimally abnormal troponins and the patient with extremely poor compl iance with medication, at this point recommend medical therapy rather than pursuing aggressive coron enedina angiography. Dictated By: FAHAD RASHID/GREG Conf#: [id number] DID#: [id number]
--- NOTE | 2016-05-10 12:18 | CONS ---
Date/Time of Note Date/Time of Note DATE: 05/10/16 TIME: 12:15 Consult Date/Type/Reason Admit Date/Time May 08, 2016 at 20:03 Initial Consult Date 05/09/16 Type of Consultation: Pulmonary Subjective Patient awake alert oriented this morning comfortable at rest Sitting up in chair with nasal cannula oxygen at 3-4 L Objective Vital Signs Date Time Temp Pulse Resp B/P Pulse Ox O2 Delivery O2 Flow Rate FiO2 05/10/16 11:48 98.6 63 20 117/54 95 05/10/16 08:40 Nasal Cannula 2.0 05/10/16 05:00 30 Intake and Output 05/09/16 05/09/16 05/10/16 15:00 23:00 07:00 Intake Total 920 ml 150 ml Balance 920 ml 150 ml Exam GENERAL: Morbidly obese lady sitting up at rest VITAL SIGNS: per chart NECK: Supple. No JVD or lymphadenopathy. CARDIAC EXAM: S1, S2. No added sounds or murmurs. CHEST: Few bilateral expiratory wheezes ABDOMEN: Soft, nontender. No guarding or rebound. Obese soft nontender no guarding or rebound EXTREMITIES: No cyanosis, clubbing or edema. NEUROLOGIC: Generalized weakness. No focal deficits. Results/Medications Result Diagram: 05/10/16 0639 05/10/16 0639 Results 24 hrs Laboratory Tests Test 05/09/16 14:43 05/10/16 06:39 05/10/16 07:30 05/10/16 08:00 Troponin I 0.123 *H 0.125 *H 0.118 White Blood Count 7.0 # Red Blood Count 4.32 Hemoglobin 12.7 Hematocrit 44.9 Mean Corpuscular Volume 103.9 H Mean Corpuscular Hemoglobin 29.4 Mean Corpuscular Hemoglobin Concent 28.3 L Red Cell Distribution Width 13.8 Platelet Count 201 Mean Platelet Volume 11.9 H Neutrophils % 65.5 Lymphocytes % 23.7 Monocytes % 7.0 Eosinophils % 3.0 Basophils % 0.7 Nucleated Red Blood Cells % 0.0 Neutrophils # 4.6 Lymphocytes # 1.7 Monocytes # 0.5 Eosinophils # 0.2 Basophils # 0.1 Nucleated Red Blood Cells # 0.0 Sodium Level 144 Potassium Level 4.6 Chloride Level 97 Carbon Dioxide Level 40 H Anion Gap 12 Blood Urea Nitrogen 19 Creatinine 0.63 Glucose Level 141 Hemoglobin A1c 6.9 H Calcium Level 8.7 Phosphorus Level 4.3 Magnesium Level 2.1 Creatine Kinase 81 81 Creatine Kinase Index 2.0 1.8 Creatinine Kinase MB (Mass) 1.62 1.45 Triglycerides Level 170 H Cholesterol Level 176 LDL Cholesterol, Calculated 94 HDL Cholesterol 48 # Cholesterol/HDL Ratio 3.6 Thyroid Stimulating Hormone (TSH) 2.450 Free Thyroxine 0.83 Blood Gas Specimen Source Blood arterial Arterial Blood Date Drawn 05/10/2016 8:30:59 AM Arterial Blood pH (Temp corrected) 7.378 Arterial Blood pCO2 (Temp correct) 60.1 H Arterial Blood pO2 (Temp corrected) 50.6 *L Arterial Blood HCO3 34.6 H Arterial Blood Base Excess 7.3 H Arterial Blood Oxygen Saturation 85.7 L Jakub Test ACCEPTAB Arterial Blood Gas Puncture Site Left Radial Arterial Blood Carboxyhemoglobin 0.8 Arterial Blood Methemoglobin 0.3 Blood Gas A-a O2 Differential 27.2 H Oxyhemoglobin Percent 84.8 L Total Hemoglobin 14.3 Blood Gas Temperature 37.0 Blood Gas Modality ROOM AIR FiO2 21.0 Blood Gas Critical Value Read Back L SAI JAY Blood Gas Notified Whom YOBAYN Blood Gas Notified Time 05/10/2016 8:41:04 AM Medications Current Medications Lorazepam (Ativan) 0.5 mg Q6H PRN IV ANXIETY; Start 05/08/16 at 21:30 Metoclopramide HCl (Reglan) 10 mg Q6H PRN IV NAUSEA AND/OR VOMITING; Start at 21:30 Nitroglycerin (Nitroglycerin (Sl Tab) 0.4 Mg) 1 tab Q5M PRN SL CHEST PAIN; Start 05/08/16 at 21:30 Acetaminophen (Tylenol Tab) 650 mg Q6H PRN PO PAIN LEVEL 1-3 OR FEVER; Start at 21:30 Acetaminophen/ Hydrocodone Bitart ([place] (5/325)) 1 tab Q6H PRN PO PAIN LEVEL 4 -6; Start 05/08/16 at 21:30 Morphine Sulfate (morphine) 2 mg Q4H PRN IV PAIN LEVEL 7-10; Start 05/08/16 at 21:30 Famotidine (Pepcid) 20 mg Q12 PO Last administered on 05/10/16t 08:54; Admin Dose 20 MG; Start 05/08/16 at 21:30 Enoxaparin Sodium (Lovenox) 40 mg DAILY SC Last administered on 05/10/16 08:57 ; Admin Dose 40 MG; Start 05/09/16 at 09:00 Aspirin (Halfprin) 81 mg DAILY PO Last administered on 05/10/16 08:54; Admin Dose 81 MG; Start 05/10/16 at 09:00 Lisinopril (Zestril) 5 mg DAILY PO Last administered on 05/10/16 08:54; Admin Dose 5 MG; Start 05/10/16 at 09:00 Atorvastatin Calcium (Lipitor) 40 mg HS PO Last administered on 05/09/16 21:18 ; Admin Dose 40 MG; Start 05/09/16 at 21:00 Acetazolamide (Diamox) 500 mg DAILY IV Last administered on 05/10/16 11:05; Admin Dose 500 MG; Start 05/10/16 at 10:00 Assessment/Plan Chief Complaint/Hosp Course Assessment 1. Hypoxemic respiratory failure 2. Likely diastolic dysfunction with pulmonary edema 3. Obstructive sleep apnea 4. Morbid obesity Plan 1. Continue supplemental O2 will likely require home oxygen 2. Continue diuretics as tolerated 3. Encourage activities 4. Outpatient sleep study and pulmonary function testing Problems: GHAZAL LALA MD, [facility] May 10, 2016 12:18
--- NOTE | 2016-05-10 14:23 | EN ---
Date/Time of Note Date/Time of Note DATE: 05/10/16 TIME: 14:22 Event Note Medicine Medicine Event Note Arterial blood gas was reviewed showed chronic hypercapnia and hypoxemia This patient has chronic hypercapnic respiratory failure secondary to COPD and would benefit from noninvasive positive pressure ventilation We will set up noninvasive positive pressure ventilation with additional supplemental O2. GHAZAL LALA MD, [facility] May 10, 2016 14:23
--- NOTE | 2016-05-10 15:14 | PN ---
Date/Time of Note Date/Time of Note DATE: 05/10/16 TIME: 15:06 Assessment/Plan VTE Prophylaxis VTE Prophylaxis Intervention: LMWH Lines/Catheters IV [facility] Peripheral IV Urinary Cath still in place: No Assessment/Plan Chief Complaint/Hosp Course 1. Acute respiratory failure. Hypoxic and hypercapnic. Most probably secondary from underlying congestive heart failure exacerbation, diastolic dysfunction. The patient will be provided with adequate diuresis. The patient will be maintained on supplemental oxygen. She will also be maintained on inhaled bronchodilators around the clock and on a p.r.n. basis for any episodes of shortness of breath. Pulmonary following. 2. Congestive heart failure exacerbation. Acute on chronic. Diastolic dysfunction. Latest 2D echocardiogram from 05/09/2014 showing an ejection fraction of 60% and stage I diastolic dysfunction. The patient's chest x-ray is suggestive of pulmonary vascular congestion. The patient will be diuresed adequately. Cardiology following. 3. Possible underlying obstructive sleep apnea. The patient needs outpatient polysomnography. Continue nocturnal noninvasive positive pressure ventilation. 4. Elevated troponins. Currently normalized. Could be a type 2 event. Continue aspirin. Cardiology following. 5. Coronary artery disease. Status post stenting of the ostium and the proximal ramus with a bare metal stent in 06/2014. Continue aspirin. 6. Essential hypertension. The patient will be maintained on antihypertensives. The patient's blood pressure is well controlled at this time. 7. Type 2 diabetes mellitus. Newly diagnosed versus undiagnosed with a hemoglobin A1c of 6.9. Will start the patient on sliding scale insulin. 8. Morbid obesity. BMI of 49.9 kg/meter squared. Weight reduction advised. 9. Dyslipidemia. Continue statins. 10. Hematochezia. Stable H&H. Will switch the patient to PPI. Will obtain gastroenterology evaluation. 11. Pulmonary hypertension. PA pressure 44 mmHg. Continue supplemental oxygen. 12. Fluid, electrolytes and nutrition. The patient will be continued on a low cholesterol diet. 13. Deep venous thrombosis prophylaxis with subcutaneous Lovenox. 14. Gastrointestinal prophylaxis. Proton pump inhibitors. PLAN: Continue supplemental oxygen and inhaled bronchodilators. Diuresis as per cardiology. Obtain gastroenterology consult. Case discussed with Dr. Damon. Problems: Subjective 24 Hr Interval Summary Free Text/Dictation Feeling "so-so." Reported rectal bleeding. Denies any chest pain. Exam/Review of Systems Vital Signs Vitals Vital Signs Date Time Temp Pulse Resp B/P Pulse Ox O2 Delivery O2 Flow Rate FiO2 05/10/16 13:21 67 20 93 Nasal Cannula 3.0 05/10/16 11:48 98.6 117/54 05/10/16 05:00 30 Intake and Output 05/09/16 05/09/16 05/10/16 15:00 23:00 07:00 Intake Total 920 ml 150 ml Balance 920 ml 150 ml Exam GENERAL: This is a morbidly obese female lying in bed, somnolent. HEENT: Normocephalic and atraumatic. Eyes: Anicteric sclerae. Conjunctivae clear. ENT: Nasal septum is midline. Oral mucosa is dry. NECK: Short with increased neck circumference. Unable to visualize any neck veins. CARDIAC: Regular rate and rhythm with a grade II/ systolic ejection murmur heard at the left sternal border. ABDOMEN: Soft, nontender and nondistended. Bowel sounds hypoactive in all 4 quadrants. GENITOURINARY: Deferred. EXTREMITIES: No cyanosis, no clubbing. Bilateral lower extremity 1+ pitting edema. Peripheral pulses palpable. NEUROLOGIC: The patient is somnolent. Wakes up to call and answers questions. No focal deficits. Results Result Diagram: 05/10/16 0639 05/10/16 0639 Results 24 hrs Laboratory Tests Test 05/10/16 06:39 05/10/16 07:30 05/10/16 08:00 White Blood Count 7.0 # Red Blood Count 4.32 Hemoglobin 12.7 Hematocrit 44.9 Mean Corpuscular Volume 103.9 H Mean Corpuscular Hemoglobin 29.4 Mean Corpuscular Hemoglobin Concent 28.3 L Red Cell Distribution Width 13.8 Platelet Count 201 Mean Platelet Volume 11.9 H Neutrophils % 65.5 Lymphocytes % 23.7 Monocytes % 7.0 Eosinophils % 3.0 Basophils % 0.7 Nucleated Red Blood Cells % 0.0 Neutrophils # 4.6 Lymphocytes # 1.7 Monocytes # 0.5 Eosinophils # 0.2 Basophils # 0.1 Nucleated Red Blood Cells # 0.0 Sodium Level 144 Potassium Level 4.6 Chloride Level 97 Carbon Dioxide Level 40 H Anion Gap 12 Blood Urea Nitrogen 19 Creatinine 0.63 Glucose Level 141 Hemoglobin A1c 6.9 H Calcium Level 8.7 Phosphorus Level 4.3 Magnesium Level 2.1 Creatine Kinase 81 81 Creatine Kinase Index 2.0 1.8 Creatinine Kinase MB (Mass) 1.62 1.45 Troponin I 0.125 *H 0.118 Triglycerides Level 170 H Cholesterol Level 176 LDL Cholesterol, Calculated 94 HDL Cholesterol 48 # Cholesterol/HDL Ratio 3.6 Thyroid Stimulating Hormone (TSH) 2.450 Free Thyroxine 0.83 Blood Gas Specimen Source Blood arterial Arterial Blood Date Drawn 05/10/2016 8:30:59 AM Arterial Blood pH (Temp corrected) 7.378 Arterial Blood pCO2 (Temp correct) 60.1 H Arterial Blood pO2 (Temp corrected) 50.6 *L Arterial Blood HCO3 34.6 H Arterial Blood Base Excess 7.3 H Arterial Blood Oxygen Saturation 85.7 L Jakub Test ACCEPTAB Arterial Blood Gas Puncture Site Left Radial Arterial Blood Carboxyhemoglobin 0.8 Arterial Blood Methemoglobin 0.3 Blood Gas A-a O2 Differential 27.2 H Oxyhemoglobin Percent 84.8 L Total Hemoglobin 14.3 Blood Gas Temperature 37.0 Blood Gas Modality ROOM AIR FiO2 21.0 Blood Gas Critical Value Read Back L SAI JAY Blood Gas Notified Whom YOBANY Blood Gas Notified Time 05/10/2016 8:41:04 AM Medications Medications Current Medications Lorazepam (Ativan) 0.5 mg Q6H PRN IV ANXIETY; Start 05/08/16 at 21:30 Metoclopramide HCl (Reglan) 10 mg Q6H PRN IV NAUSEA AND/OR VOMITING; Start at 21:30 Nitroglycerin (Nitroglycerin (Sl Tab) 0.4 Mg) 1 tab Q5M PRN SL CHEST PAIN; Start 05/08/16 at 21:30 Acetaminophen (Tylenol Tab) 650 mg Q6H PRN PO PAIN LEVEL 1-3 OR FEVER; Start at 21:30 Acetaminophen/ Hydrocodone Bitart ([place] (5/325)) 1 tab Q6H PRN PO PAIN LEVEL 4 -6; Start 05/08/16 at 21:30 Morphine Sulfate (morphine) 2 mg Q4H PRN IV PAIN LEVEL 7-10; Start 05/08/16 at 21:30 Famotidine (Pepcid) 20 mg Q12 PO Last administered on 05/10/16t 08:54; Admin Dose 20 MG; Start 05/08/16 at 21:30 Enoxaparin Sodium (Lovenox) 40 mg DAILY SC Last administered on 05/10/16 08:57 ; Admin Dose 40 MG; Start 05/09/16 at 09:00 Aspirin (Halfprin) 81 mg DAILY PO Last administered on 05/10/16 08:54; Admin Dose 81 MG; Start 05/10/16 at 09:00 Lisinopril (Zestril) 5 mg DAILY PO Last administered on 05/10/16 08:54; Admin Dose 5 MG; Start 05/10/16 at 09:00 Atorvastatin Calcium (Lipitor) 40 mg HS PO Last administered on 05/09/16 21:18 ; Admin Dose 40 MG; Start 05/09/16 at 21:00 Acetazolamide (Diamox) 500 mg DAILY IV Last administered on 05/10/16 11:05; Admin Dose 500 MG; Start 05/10/16 at 10:00 SHARLENE CHOWDHURY NP May 10, 2016 15:14
[2016-05-10] MEDS ORDERED: DEXTROSE 50% 50 ML SYRINGE IV PRN ×2 (15:30)
[2016-05-10] MEDS ORDERED: GLUCOSE GEL 15 GRAM TUBE PO PRN ×2 (15:30)
[2016-05-10] MEDS ORDERED: GLUCOSE GEL 15 GRAM TUBE BUCCAL PRN (15:30)
[2016-05-10] MEDS ORDERED: GLUCAGON 1 MG INJ IM PRN (15:30)
--- NOTE | 2016-05-10 16:55 | CONS ---
Date/Time of Note Date/Time of Note DATE: 05/10/16 TIME: 16:32 Assessment/Plan Assessment/Plan Additional Assessment/Plan Assessment * Hematochezia (minimal 2 tsp) R/O Diverticulosis R/O Tumors R/O Bleeding Hemorrhoids * Hypoxemic respiratory failure * Likely diastolic dysfunction with pulmonary edema * Obstructive sleep apnea * . Morbid obesity * * Plan * Stool for occult blood x3 * Monitor H and H Q6 transfuse 1 unit PRBC if hemoglobin is less than 7.5,2 units if hgb is less howard 7 * for colonoscopy once stable Consultation Date/Type/Reason Admit Date/Time May 08, 2016 at 20:03 Type of Consultation: Gastroenterology Hx of Present Illness 55 y/o female referred for evaluation of hematochezia.Patient had history of NSTEMI,CHF,morbid obesity ,sleep apnea.She is presently admitted because of difficulty of breathing secondary to acute CHF.Presently .She had 2 episodes of hematochezia about 2 tsp .She claims to have history of hemorrhoids having a blood streaked stool on and off ,last episode was 2 weeks ago.No medications taken nor applied.Hemoglobin has been stable for the last 3 days ,latest is 12.She denies any hematemesis,vomiting nor abdominal pain.denies any history of colonoscopy Constitutional: improved, no complaints Eyes: no complaints ENT: no complaints Respiratory: cough, shortness of breath, No pain Cardiovascular: edema Gastrointestinal: blood (stool x2 ), No pain, No vomiting Genitourinary: no complaints Musculoskeletal: no complaints Skin: no complaints Neurologic: no complaints Endocrine: no complaints Lymphatic: no complaints Psychological: nl mood/affect, no complaints Immunologic: no complaints Past Medical History Medical History: congestive heart failure, coronary artery disease, high cholesterol, hypertension, other (morbid obesity) Past Surgical History Past Surgical Hx: no surgical history Family History Significant Family History: diabetes, hypertension Social History Smoking Status: Never smoker Exam/Review of Systems Vital Signs Vitals Vital Signs Date Time Temp Pulse Resp B/P Pulse Ox O2 Delivery O2 Flow Rate FiO2 05/10/16 16:18 49 05/10/16 16:01 98.0 20 103/47 94 05/10/16 13:21 Nasal Cannula 3.0 05/10/16 05:00 30 Intake and Output 05/09/16 05/09/16 05/10/16 15:00 23:00 07:00 Intake Total 920 ml 150 ml Balance 920 ml 150 ml Exam Constitutional: alert, oriented, well developed Psych: nl mood/affect, no complaints Head: atraumatic, normocephalic Eyes: PERRL, nl conjunctiva, nl lids, nl sclera ENMT: nl external ears & nose, nl lips & teeth, nl nasal mucosa & septum Neck: non-tender, supple Respiratory: diminished breath sounds, labored breathing, normal air movement Cardiovascular: nl pulses, regular rate and rhythm Gastrointestinal: bowel sounds, nl liver, spleen, non-tender, soft, No ascites, No distended, No firm, No hepatomegaly, No mass, No rebound or guarding, No splenomegaly, No surgical scars, No tender Musculoskeletal: nl extremities to inspection Extremities: normal pulses Neurological: nl mental status, nl speech, nl strength Skin: nl turgor, No rash or lesions Lymph: nl lymph nodes Results Result Diagram: 05/10/16 0639 05/10/16 0639 Results 24 hrs Laboratory Tests Test 05/10/16 06:39 05/10/16 07:30 05/10/16 08:00 White Blood Count 7.0 # Red Blood Count 4.32 Hemoglobin 12.7 Hematocrit 44.9 Mean Corpuscular Volume 103.9 H Mean Corpuscular Hemoglobin 29.4 Mean Corpuscular Hemoglobin Concent 28.3 L Red Cell Distribution Width 13.8 Platelet Count 201 Mean Platelet Volume 11.9 H Neutrophils % 65.5 Lymphocytes % 23.7 Monocytes % 7.0 Eosinophils % 3.0 Basophils % 0.7 Nucleated Red Blood Cells % 0.0 Neutrophils # 4.6 Lymphocytes # 1.7 Monocytes # 0.5 Eosinophils # 0.2 Basophils # 0.1 Nucleated Red Blood Cells # 0.0 Sodium Level 144 Potassium Level 4.6 Chloride Level 97 Carbon Dioxide Level 40 H Anion Gap 12 Blood Urea Nitrogen 19 Creatinine 0.63 Glucose Level 141 Hemoglobin A1c 6.9 H Calcium Level 8.7 Phosphorus Level 4.3 Magnesium Level 2.1 Creatine Kinase 81 81 Creatine Kinase Index 2.0 1.8 Creatinine Kinase MB (Mass) 1.62 1.45 Troponin I 0.125 *H 0.118 Triglycerides Level 170 H Cholesterol Level 176 LDL Cholesterol, Calculated 94 HDL Cholesterol 48 # Cholesterol/HDL Ratio 3.6 Thyroid Stimulating Hormone (TSH) 2.450 Free Thyroxine 0.83 Blood Gas Specimen Source Blood arterial Arterial Blood Date Drawn 05/10/2016 8:30:59 AM Arterial Blood pH (Temp corrected) 7.378 Arterial Blood pCO2 (Temp correct) 60.1 H Arterial Blood pO2 (Temp corrected) 50.6 *L Arterial Blood HCO3 34.6 H Arterial Blood Base Excess 7.3 H Arterial Blood Oxygen Saturation 85.7 L Jakub Test ACCEPTAB Arterial Blood Gas Puncture Site Left Radial Arterial Blood Carboxyhemoglobin 0.8 Arterial Blood Methemoglobin 0.3 Blood Gas A-a O2 Differential 27.2 H Oxyhemoglobin Percent 84.8 L Total Hemoglobin 14.3 Blood Gas Temperature 37.0 Blood Gas Modality ROOM AIR FiO2 21.0 Blood Gas Critical Value Read Back L SAI JAY Blood Gas Notified Whom YOBANY Blood Gas Notified Time 05/10/2016 8:41:04 AM Medications Medications Current Medications Lorazepam (Ativan) 0.5 mg Q6H PRN IV ANXIETY; Start 05/08/16 at 21:30 Metoclopramide HCl (Reglan) 10 mg Q6H PRN IV NAUSEA AND/OR VOMITING; Start at 21:30 Nitroglycerin (Nitroglycerin (Sl Tab) 0.4 Mg) 1 tab Q5M PRN SL CHEST PAIN; Start 05/08/16 at 21:30 Acetaminophen (Tylenol Tab) 650 mg Q6H PRN PO PAIN LEVEL 1-3 OR FEVER; Start at 21:30 Acetaminophen/ Hydrocodone Bitart ([place] (5/325)) 1 tab Q6H PRN PO PAIN LEVEL 4 -6; Start 05/08/16 at 21:30 Morphine Sulfate (morphine) 2 mg Q4H PRN IV PAIN LEVEL 7-10; Start 05/08/16 at 21:30 Enoxaparin Sodium (Lovenox) 40 mg DAILY SC Last administered on 05/10/16 08:57 ; Admin Dose 40 MG; Start 05/09/16 at 09:00 Aspirin (Halfprin) 81 mg DAILY PO Last administered on 05/10/16 08:54; Admin Dose 81 MG; Start 05/10/16 at 09:00 Lisinopril (Zestril) 5 mg DAILY PO Last administered on 05/10/16 08:54; Admin Dose 5 MG; Start 05/10/16 at 09:00 Atorvastatin Calcium (Lipitor) 40 mg HS PO Last administered on 05/09/16 21:18 ; Admin Dose 40 MG; Start 05/09/16 at 21:00 Acetazolamide (Diamox) 500 mg DAILY IV Last administered on 05/10/16 11:05; Admin Dose 500 MG; Start 05/10/16 at 10:00 Pantoprazole (Protonix Tab) 40 mg BID@06,18 PO ; Start 05/10/16 at 18:00 Diagnostic Test (Pha) (Accu-Chek) 1 ea 02 XX ; Start 05/11/16 at 02:00 Miscellaneous Information 1 ea NOTE XX ; Start 05/10/16 at 15:30 Glucose (Glutose) 15 gm Q15M PRN PO DECREASED GLUCOSE; Start 05/10/16 at 15:30 Glucose (Glutose) 22.5 gm Q15M PRN PO DECREASED GLUCOSE; Start 05/10/16 at 15: 30 Dextrose (D50w Syringe) 25 ml Q15M PRN IV DECREASED GLUCOSE; Start 05/10/16 at 15:30 Dextrose (D50w Syringe) 50 ml Q15M PRN IV DECREASED GLUCOSE; Start 05/10/16 at 15:30 Glucagon (Glucagen) 1 mg Q15M PRN IM DECREASED GLUCOSE; Start 05/10/16 at 15:30 Glucose (Glutose) 15 gm Q15M PRN BUCCAL DECREASED GLUCOSE; Start 05/10/16 at 15 :30 GEOVANNY KENYON MD May 10, 2016 16:43
[2016-05-10] MEDS: INSULIN ASPART [NOVOLOG] 3 ML PEN SC SCH ×2 (17:26→21:00)
[2016-05-10] MEDS: PANTOPRAZOLE (EC) 40 MG TAB PO SCH (17:29)
[2016-05-10] MEDS: ATORVASTATIN 40 MG TAB PO SCH (21:41)
[2016-05-11] VITALS (12 sets, daily range): BP systolic 85–181; BP diastolic 46–80; PULSE 61–67; RESP 14–18
[2016-05-11] MEDS: ACCU-CHEK XX SCH (02:00)
[2016-05-11] MEDS: PANTOPRAZOLE (EC) 40 MG TAB PO SCH ×2 (06:38→18:11)
[2016-05-11] MEDS: INSULIN ASPART [NOVOLOG] 3 ML PEN SC SCH ×4 (08:00→20:12)
[2016-05-11] MEDS: ALBUTEROL 0.083% (NEB) 2.5 MG/3 ML AMP HHN SCH ×3 (08:12→19:11)
[2016-05-11 08:33] LABS: ADD SCAN DIFF NO
[2016-05-11] MEDS: ASPIRIN (EC) 81 MG TAB PO SCH (08:57)
[2016-05-11 08:58] LABS: ALBUMIN 3.5 g/dl (3.3-4.9)
[2016-05-11] MEDS: ACETAZOLAMIDE 500 MG INJ IV SCH (08:58)
[2016-05-11] MEDS: LISINOPRIL 5 MG TAB PO SCH (08:58)
[2016-05-11 08:59] LABS: POTASSIUM 4.7 mmol/L (3.5-5.1)
[2016-05-11 09:01] LABS: ALBUMIN/GLOBULIN RATIO 0.94; BILIRUBIN,INDIRECT 0.4 mg/dl (0-1.1); BILIRUBIN,TOTAL 0.4 mg/dl (0.2-1.3); CREATININE 0.71 mg/dl (0.44-1.00); TOTAL PROTEIN 7.2 g/dl (6.1-8.1)
[2016-05-11] MEDS: ENOXAPARIN 40 MG/0.4 ML SYG SC SCH (09:01)
[2016-05-11 09:02] LABS: CALCIUM 8.6 mg/dl (8.4-10.2)
[2016-05-11 09:06] LABS: BASOPHILS % 0.5 % (0.0-2.0); EOSINOPHILS # 0.2 10^3/ul (0.0-0.5); EOSINOPHILS % 2.9 % (0.0-7.0); HEMATOCRIT 44.2 % (37.0-47.0); HEMOGLOBIN 12.8 g/dl (12.0-16.0); LYMPHOCYTES # 1.6 10^3/ul (0.8-2.9); LYMPHOCYTES % 20.3 % (15.0-51.0); MEAN CORPUSCULAR HEMOGLOBIN 30.2 pg (29.0-33.0); MEAN CORPUSCULAR VOLUME 104.2 fl (82.0-101.0); MEAN PLATELET VOLUME 12.2 fl (7.4-10.4); MONOCYTE # 0.6 10^3/ul (0.3-0.9); MONOCYTES % 8.1 % (0.0-11.0); NEUTROPHIL # 5.4 10^3/ul (1.6-7.5); NEUTROPHILS % 67.8 % (39.0-77.0); PLATELET COUNT 218 10^3/UL (140-415); RED BLOOD COUNT 4.24 10^6/ul (4.20-5.40); RED CELL DISTRIBUTION WIDTH 13.7 % (11.5-14.5); WHITE BLOOD COUNT 7.9 10^3/ul (4.8-10.8)
[2016-05-11 09:07] LABS: MAGNESIUM 2.2 mg/dl (1.7-2.5); PHOSPHORUS 5.2 mg/dl (2.5-4.9)
--- NOTE | 2016-05-11 10:50 | PN ---
Date/Time of Note Date/Time of Note DATE: 05/11/16 TIME: 10:50 Assessment/Plan VTE Prophylaxis VTE Prophylaxis Intervention: SCD's Lines/Catheters IV C[facility]ter Type (from [facility] Peripheral IV Urinary Cath still in place: No Assessment/Plan Assessment/Plan 1. Mildly abnormal troponin, most likely related to congestive heart failure. 2. Pulmonary hypertension, probably a combination of congestive heart failure, as well as pulmonary disease, possibly with sleep apnea versus others. 3. Hypertension. 4. Coronary artery disease, status post myocardial infarction. 5. History of percutaneous coronary intervention. 6. Dyslipidemia. 7. Diabetes. 8. Poor compliance with medication. RECOMMENDATIONS: The patient appears to be extremely poor compliance. Importance of compliance with medication was explained to the patient. The patient was started appropriately on aspirin, RITA inhibitor, carvedilol and statins. I will change the Lasix to Diamox. Follow up with the pulmonary recommendations. Given the normal EKG and very minimally abnormal troponins and the patient with extremely poor compliance with medication, at this point recommend medical therapy rather than pursuing aggressive coronary angiography. Subjective 24 Hr Interval Summary Free Text/Dictation The patinet with no change Exam/Review of Systems Vital Signs Vitals Vital Signs Date Time Temp Pulse Resp B/P Pulse Ox O2 Delivery O2 Flow Rate FiO2 05/11/16 08:20 98.0 69 18 100/51 98 05/11/16 08:12 Nasal Cannula 3.0 05/10/16 05:00 30 Intake and Output 05/10/16 05/10/16 05/11/16 15:00 23:00 07:00 Intake Total 700 ml 400 ml Balance 700 ml 400 ml Results Result Diagram: 05/11/16 0705/11/16 0700 Results 24 hrs Laboratory Tests Test 05/10/16 17:25 05/10/16 21:38 05/11/16 07:00 05/11/16 08:30 Bedside Glucose 116 109 122 White Blood Count 7.9 Red Blood Count 4.24 Hemoglobin 12.8 Hematocrit 44.2 Mean Corpuscular Volume 104.2 H Mean Corpuscular Hemoglobin 30.2 Mean Corpuscular Hemoglobin Concent 29.0 L Red Cell Distribution Width 13.7 Platelet Count 218 Mean Platelet Volume 12.2 H Neutrophils % 67.8 Lymphocytes % 20.3 Monocytes % 8.1 Eosinophils % 2.9 Basophils % 0.5 Nucleated Red Blood Cells % 0.0 Neutrophils # 5.4 Lymphocytes # 1.6 Monocytes # 0.6 Eosinophils # 0.2 Basophils # 0.0 Nucleated Red Blood Cells # 0.0 Sodium Level 138 Potassium Level 4.7 Chloride Level 99 Carbon Dioxide Level 33 H Anion Gap 11 Blood Urea Nitrogen 22 H Creatinine 0.71 Glucose Level 130 Calcium Level 8.6 Phosphorus Level 5.2 H Magnesium Level 2.2 Total Bilirubin 0.4 Direct Bilirubin 0.00 Indirect Bilirubin 0.4 Aspartate Amino Transf (AST/SGOT) 26 Alanine Aminotransferase (ALT/SGPT) 35 Alkaline Phosphatase 148 H B-Type Natriuretic Peptide 56 Total Protein 7.2 Albumin 3.5 Globulin 3.70 H Albumin/Globulin Ratio 0.94 Medications Medications Current Medications Lorazepam (Ativan) 0.5 mg Q6H PRN IV ANXIETY; Start 05/08/16 at 21:30 Metoclopramide HCl (Reglan) 10 mg Q6H PRN IV NAUSEA AND/OR VOMITING; Start at 21:30 Nitroglycerin (Nitroglycerin (Sl Tab) 0.4 Mg) 1 tab Q5M PRN SL CHEST PAIN; Start 05/08/16 at 21:30 Acetaminophen (Tylenol Tab) 650 mg Q6H PRN PO PAIN LEVEL 1-3 OR FEVER; Start at 21:30 Acetaminophen/ Hydrocodone Bitart ([place] (5/325)) 1 tab Q6H PRN PO PAIN LEVEL 4 -6; Start 05/08/16 at 21:30 Morphine Sulfate (morphine) 2 mg Q4H PRN IV PAIN LEVEL 7-10; Start 05/08/16 at 21:30 Enoxaparin Sodium (Lovenox) 40 mg DAILY SC Last administered on 05/11/16 09:01 ; Admin Dose 40 MG; Start 05/09/16 at 09:00 Aspirin (Halfprin) 81 mg DAILY PO Last administered on 05/11/16 08:57; Admin Dose 81 MG; Start 05/10/16 at 09:00 Lisinopril (Zestril) 5 mg DAILY PO Last administered on 05/10/16 08:54; Admin Dose 5 MG; Start 05/10/16 at 09:00 Atorvastatin Calcium (Lipitor) 40 mg HS PO Last administered on 3/24/17at 21:41 ; Admin Dose 40 MG; Start 05/09/16 at 21:00 Acetazolamide (Diamox) 500 mg DAILY IV Last administered on 05/11/16 08:58; Admin Dose 500 MG; Start 05/10/16 at 10:00 Pantoprazole (Protonix Tab) 40 mg BID@06,18 PO Last administered on 05/11/16 06:38; Admin Dose 40 MG; Start 05/10/16 at 18:00 Diagnostic Test (Pha) (Accu-Chek) 1 ea 02 XX ; Start 05/11/16 at 02:00 Miscellaneous Information 1 ea NOTE XX ; Start 05/10/16 at 15:30 Glucose (Glutose) 15 gm Q15M PRN PO DECREASED GLUCOSE; Start 05/10/16 at 15:30 Glucose (Glutose) 22.5 gm Q15M PRN PO DECREASED GLUCOSE; Start 05/10/16 at 15: 30 Dextrose (D50w Syringe) 25 ml Q15M PRN IV DECREASED GLUCOSE; Start 05/10/16 at 15:30 Dextrose (D50w Syringe) 50 ml Q15M PRN IV DECREASED GLUCOSE; Start 05/10/16 at 15:30 Glucagon (Glucagen) 1 mg Q15M PRN IM DECREASED GLUCOSE; Start 05/10/16 at 15:30 Glucose (Glutose) 15 gm Q15M PRN BUCCAL DECREASED GLUCOSE; Start 05/10/16 at 15 :30 JASS JORDAN MD May 11, 2016 10:50
--- NOTE | 2016-05-11 12:42 | PN ---
Date/Time of Note Date/Time of Note DATE: 05/11/16 TIME: 12:38 Assessment/Plan VTE Prophylaxis VTE Prophylaxis Intervention: LMWH Lines/Catheters IV Catheter Type (from [facility]): Peripheral IV Urinary Cath still in place: No Assessment/Plan Chief Complaint/Hosp Course 1. Acute respiratory failure. Hypoxic and hypercapnic. Most probably secondary from underlying congestive heart failure exacerbation, diastolic dysfunction. The patient will be provided with adequate diuresis. The patient will be maintained on supplemental oxygen. She will also be maintained on inhaled bronchodilators around the clock and on a p.r.n. basis for any episodes of shortness of breath. Pulmonary following. 2. Congestive heart failure exacerbation. Acute on chronic. Diastolic dysfunction. Latest 2D echocardiogram from 05/09/2014 showing an ejection fraction of 60% and stage I diastolic dysfunction. The patient's chest x-ray is suggestive of pulmonary vascular congestion. The patient will be diuresed adequately. Cardiology following. 3. Possible underlying obstructive sleep apnea. The patient needs outpatient polysomnography. Continue nocturnal noninvasive positive pressure ventilation. 4. Elevated troponins. Currently normalized. Could be a type 2 event. Continue aspirin. Cardiology following. 5. Coronary artery disease. Status post stenting of the ostium and the proximal ramus with a bare metal stent in 06/2014. Continue aspirin. 6. Essential hypertension. The patient will be maintained on antihypertensives. The patient's blood pressure is well controlled at this time. 7. Type 2 diabetes mellitus. Newly diagnosed versus undiagnosed with a hemoglobin A1c of 6.9. Will start the patient on sliding scale insulin. 8. Significant bradycardia. Avoid AV stanford blocking agents. Cardiology following. Monitor.. 9. Morbid obesity. BMI of 49.9 kg/meter squared. Weight reduction advised. 10. Dyslipidemia. Continue statins. 11. Hematochezia. Stable H&H. Continue proton pump inhibitors. Gastroenterology following. 12. Pulmonary hypertension. PA pressure 44 mmHg. Continue supplemental oxygen. 13. Fluid, electrolytes and nutrition. The patient will be continued on a low cholesterol diet. 14. Deep venous thrombosis prophylaxis with subcutaneous Lovenox. 15. Gastrointestinal prophylaxis. Proton pump inhibitors. PLAN: Continue supplemental oxygen and inhaled bronchodilators. Diuresis as per cardiology. Case discussed with Dr. Damon. Problems: Subjective 24 Hr Interval Summary Free Text/Dictation Patient had significant bradycardia in the morning. The heart rate was as low as 32/min. However, the patient remained asymptomatic. The patient has been refusing her BiPAP. Exam/Review of Systems Vital Signs Vitals Vital Signs Date Time Temp Pulse Resp B/P Pulse Ox O2 Delivery O2 Flow Rate FiO2 05/11/16 12:10 98.0 67 18 104/53 98 05/11/16 08:12 Nasal Cannula 3.0 05/10/16 05:00 30 Intake and Output 05/10/16 05/10/16 05/11/16 15:00 23:00 07:00 Intake Total 700 ml 400 ml Balance 700 ml 400 ml Exam GENERAL: This is a morbidly obese female lying in bed in no apparent distress. HEENT: Normocephalic and atraumatic. Eyes: Anicteric sclerae. Conjunctivae clear. ENT: Nasal septum is midline. Oral mucosa is dry. NECK: Short with increased neck circumference. Unable to visualize any neck veins. CARDIAC: Regular rate and rhythm with a grade II/ systolic ejection murmur heard at the left sternal border. ABDOMEN: Soft, nontender and nondistended. Bowel sounds hypoactive in all 4 quadrants. GENITOURINARY: Deferred. EXTREMITIES: No cyanosis, no clubbing. Bilateral lower extremity 1+ pitting edema. Peripheral pulses palpable. NEUROLOGIC: Moves all four extremities. Awake, alert, and oriented. No focal deficits. Results Result Diagram: 05/11/16 0700 05/11/16 0700 Results 24 hrs Laboratory Tests Test 05/10/16 17:25 05/10/16 21:38 05/11/16 07:00 05/11/16 08:30 Bedside Glucose 116 109 122 White Blood Count 7.9 Red Blood Count 4.24 Hemoglobin 12.8 Hematocrit 44.2 Mean Corpuscular Volume 104.2 H Mean Corpuscular Hemoglobin 30.2 Mean Corpuscular Hemoglobin Concent 29.0 L Red Cell Distribution Width 13.7 Platelet Count 218 Mean Platelet Volume 12.2 H Neutrophils % 67.8 Lymphocytes % 20.3 Monocytes % 8.1 Eosinophils % 2.9 Basophils % 0.5 Nucleated Red Blood Cells % 0.0 Neutrophils # 5.4 Lymphocytes # 1.6 Monocytes # 0.6 Eosinophils # 0.2 Basophils # 0.0 Nucleated Red Blood Cells # 0.0 Sodium Level 138 Potassium Level 4.7 Chloride Level 99 Carbon Dioxide Level 33 H Anion Gap 11 Blood Urea Nitrogen 22 H Creatinine 0.71 Glucose Level 130 Calcium Level 8.6 Phosphorus Level 5.2 H Magnesium Level 2.2 Total Bilirubin 0.4 Direct Bilirubin 0.00 Indirect Bilirubin 0.4 Aspartate Amino Transf (AST/SGOT) 26 Alanine Aminotransferase (ALT/SGPT) 35 Alkaline Phosphatase 148 H B-Type Natriuretic Peptide 56 Total Protein 7.2 Albumin 3.5 Globulin 3.70 H Albumin/Globulin Ratio 0.94 Test 05/11/16 11:38 Bedside Glucose 136 Medications Medications Current Medications Lorazepam (Ativan) 0.5 mg Q6H PRN IV ANXIETY; Start 05/08/16 at 21:30 Metoclopramide HCl (Reglan) 10 mg Q6H PRN IV NAUSEA AND/OR VOMITING; Start at 21:30 Nitroglycerin (Nitroglycerin (Sl Tab) 0.4 Mg) 1 tab Q5M PRN SL CHEST PAIN; Start 05/08/16 at 21:30 Acetaminophen (Tylenol Tab) 650 mg Q6H PRN PO PAIN LEVEL 1-3 OR FEVER; Start at 21:30 Acetaminophen/ Hydrocodone Bitart ([place] (5/325)) 1 tab Q6H PRN PO PAIN LEVEL 4 -6; Start 05/08/16 at 21:30 Morphine Sulfate (morphine) 2 mg Q4H PRN IV PAIN LEVEL 7-10; Start 05/08/16 at 21:30 Enoxaparin Sodium (Lovenox) 40 mg DAILY SC Last administered on 05/11/16 09:01 ; Admin Dose 40 MG; Start 05/09/16 at 09:00 Aspirin (Halfprin) 81 mg DAILY PO Last administered on 05/11/16 08:57; Admin Dose 81 MG; Start 05/10/16 at 09:00 Lisinopril (Zestril) 5 mg DAILY PO Last administered on 05/10/16 08:54; Admin Dose 5 MG; Start 05/10/16 at 09:00 Atorvastatin Calcium (Lipitor) 40 mg HS PO Last administered on 05/10/16 21:41 ; Admin Dose 40 MG; Start 05/09/16 at 21:00 Acetazolamide (Diamox) 500 mg DAILY IV Last administered on 05/11/16 08:58; Admin Dose 500 MG; Start 05/10/16 at 10:00 Pantoprazole (Protonix Tab) 40 mg BID@06,18 PO Last administered on 05/11/16t 06:38; Admin Dose 40 MG; Start 05/10/16 at 18:00 Diagnostic Test (Pha) (Accu-Chek) 1 ea 02 XX ; Start 05/11/16 at 02:00 Miscellaneous Information 1 ea NOTE XX ; Start 05/10/16 at 15:30 Glucose (Glutose) 15 gm Q15M PRN PO DECREASED GLUCOSE; Start 05/10/16 at 15:30 Glucose (Glutose) 22.5 gm Q15M PRN PO DECREASED GLUCOSE; Start 05/10/16 at 15: 30 Dextrose (D50w Syringe) 25 ml Q15M PRN IV DECREASED GLUCOSE; Start 05/10/16 at 15:30 Dextrose (D50w Syringe) 50 ml Q15M PRN IV DECREASED GLUCOSE; Start 05/10/16 at 15:30 Glucagon (Glucagen) 1 mg Q15M PRN IM DECREASED GLUCOSE; Start 05/10/16 at 15:30 Glucose (Glutose) 15 gm Q15M PRN BUCCAL DECREASED GLUCOSE; Start 05/10/16 at 15 :30 SHARLENE CHOWDHURY NP May 11, 2016 12:42
--- NOTE | 2016-05-11 13:45 | CONS ---
Date/Time of Note Date/Time of Note DATE: 05/11/16 TIME: 13:45 Assessment/Plan Assessment/Plan Additional Assessment/Plan Assessment * Hematochezia (minimal 2 tsp) * R/O Diverticulosis * R/O Tumors * R/O Bleeding Hemorrhoids * CT abdomen in process * Hypoxemic respiratory failure * Likely diastolic dysfunction with pulmonary edema * Obstructive sleep apnea * Morbid obesity Plan * Stool for occult blood x3 * Monitor H and H Q6 transfuse 1 unit PRBC if hemoglobin is less than 7.5,2 units if hgb is less howard 7 * Planned for colonoscopy once stable * Further recommendations pending clinical course * Patient seen in collaboration with Dr. Ramírez Consultation Date/Type/Reason Admit Date/Time May 08, 2016 at 20:03 Initial Consult Date 05/09/16 Type of Consultation: Gastroenterology 24 HR Interval Summary Free Text/Dictation Tolerating diet CT abdomen in process Awaiting stool OB results Exam/Review of Systems Vital Signs Vitals Vital Signs Date Time Temp Pulse Resp B/P Pulse Ox O2 Delivery O2 Flow Rate FiO2 05/11/16 12:10 98.0 67 18 104/53 98 05/11/16 08:12 Nasal Cannula 3.0 05/10/16 05:00 30 Intake and Output 05/10/16 05/10/16 05/11/16 15:00 23:00 07:00 Intake Total 700 ml 400 ml Balance 700 ml 400 ml Exam Constitutional: alert, oriented, well developed, obese Psych: nl mood/affect Head: normocephalic Eyes: EOMI, nl conjunctiva, nl lids ENMT: nl external ears & nose, nl lips & teeth, nl nasal mucosa & septum Respiratory: clear to auscultation, normal air movement Cardiovascular: regular rate and rhythm Gastrointestinal: soft, non tender Musculoskeletal: nl extremities to inspection Neurological: DIRECTOR OF MARKET RESEARCH II-XII intact Results Result Diagram: 05/11/16 0700 05/11/16 0700 Results 24 hrs Laboratory Tests Test 05/10/16 17:25 05/10/16 21:38 05/11/16 07:00 05/11/16 08:30 Bedside Glucose 116 109 122 White Blood Count 7.9 Red Blood Count 4.24 Hemoglobin 12.8 Hematocrit 44.2 Mean Corpuscular Volume 104.2 H Mean Corpuscular Hemoglobin 30.2 Mean Corpuscular Hemoglobin Concent 29.0 L Red Cell Distribution Width 13.7 Platelet Count 218 Mean Platelet Volume 12.2 H Neutrophils % 67.8 Lymphocytes % 20.3 Monocytes % 8.1 Eosinophils % 2.9 Basophils % 0.5 Nucleated Red Blood Cells % 0.0 Neutrophils # 5.4 Lymphocytes # 1.6 Monocytes # 0.6 Eosinophils # 0.2 Basophils # 0.0 Nucleated Red Blood Cells # 0.0 Sodium Level 138 Potassium Level 4.7 Chloride Level 99 Carbon Dioxide Level 33 H Anion Gap 11 Blood Urea Nitrogen 22 H Creatinine 0.71 Glucose Level 130 Calcium Level 8.6 Phosphorus Level 5.2 H Magnesium Level 2.2 Total Bilirubin 0.4 Direct Bilirubin 0.00 Indirect Bilirubin 0.4 Aspartate Amino Transf (AST/SGOT) 26 Alanine Aminotransferase (ALT/SGPT) 35 Alkaline Phosphatase 148 H B-Type Natriuretic Peptide 56 Total Protein 7.2 Albumin 3.5 Globulin 3.70 H Albumin/Globulin Ratio 0.94 Test 05/11/16 11:38 Bedside Glucose 136 Medications Medications Current Medications Lorazepam (Ativan) 0.5 mg Q6H PRN IV ANXIETY; Start 05/08/16 at 21:30 Metoclopramide HCl (Reglan) 10 mg Q6H PRN IV NAUSEA AND/OR VOMITING; Start at 21:30 Nitroglycerin (Nitroglycerin (Sl Tab) 0.4 Mg) 1 tab Q5M PRN SL CHEST PAIN; Start 05/08/16 at 21:30 Acetaminophen (Tylenol Tab) 650 mg Q6H PRN PO PAIN LEVEL 1-3 OR FEVER; Start at 21:30 Acetaminophen/ Hydrocodone Bitart ([place] (5/325)) 1 tab Q6H PRN PO PAIN LEVEL 4 -6; Start 05/08/16 at 21:30 Morphine Sulfate (morphine) 2 mg Q4H PRN IV PAIN LEVEL 7-10; Start 05/08/16 at 21:30 Enoxaparin Sodium (Lovenox) 40 mg DAILY SC Last administered on 05/11/16 09:01 ; Admin Dose 40 MG; Start 05/09/16 at 09:00 Aspirin (Halfprin) 81 mg DAILY PO Last administered on 05/11/16 08:57; Admin Dose 81 MG; Start 05/10/16 at 09:00 Lisinopril (Zestril) 5 mg DAILY PO Last administered on 05/10/16 08:54; Admin Dose 5 MG; Start 05/10/16 at 09:00 Atorvastatin Calcium (Lipitor) 40 mg HS PO Last administered on 05/10/16 21:41 ; Admin Dose 40 MG; Start 05/09/16 at 21:00 Acetazolamide (Diamox) 500 mg DAILY IV Last administered on 05/11/16 08:58; Admin Dose 500 MG; Start 05/10/16 at 10:00 Pantoprazole (Protonix Tab) 40 mg BID@18 PO Last administered on 05/11/16 06:38; Admin Dose 40 MG; Start 05/10/16 at 18:00 Diagnostic Test (Pha) (Accu-Chek) 1 ea 02 XX ; Start 05/11/16 at 02:00 Miscellaneous Information 1 ea NOTE XX ; Start 05/10/16 at 15:30 Glucose (Glutose) 15 gm Q15M PRN PO DECREASED GLUCOSE; Start 05/10/16 at 15:30 Glucose (Glutose) 22.5 gm Q15M PRN PO DECREASED GLUCOSE; Start 05/10/16 at 15: 30 Dextrose (D50w Syringe) 25 ml Q15M PRN IV DECREASED GLUCOSE; Start 05/10/16 at 15:30 Dextrose (D50w Syringe) 50 ml Q15M PRN IV DECREASED GLUCOSE; Start 05/10/16 at 15:30 Glucagon (Glucagen) 1 mg Q15M PRN IM DECREASED GLUCOSE; Start 05/10/16 at 15:30 Glucose (Glutose) 15 gm Q15M PRN BUCCAL DECREASED GLUCOSE; Start 05/10/16 at 15 :30 RICHA CENTENO May 11, 2016 13:45
--- NOTE | 2016-05-11 14:34 | CONS ---
Date/Time of Note Date/Time of Note DATE: 05/11/16 TIME: 14:32 Assessment/Plan Assessment/Plan Additional Assessment/Plan Assessment recommendations; 1. Patient admitted for massive edema due to underlying CHF, patient out of medication for several days prior to admission. 2. Likely undiagnosed sleep apnea. 3. Significant clinical improvement. Next Continue current treatment. Consultation Date/Type/Reason Admit Date/Time May 08, 2016 at 20:03 Initial Consult Date 05/09/16 Type of Consultation: Pulmonary 24 HR Interval Summary Free Text/Dictation Patient condition is continually improving. Patient reports decreased shortness of breath. All as well as decreased peripheral edema. Denies any chest pain, wheezing cough sputum production. General exam; middle-aged woman appears morbidly obese currently in no distress sitting in a chair by bedside. Exam/Review of Systems Vital Signs Vitals Vital Signs Date Time Temp Pulse Resp B/P Pulse Ox O2 Delivery O2 Flow Rate FiO2 05/11/16 12:10 98.0 67 18 104/53 98 05/11/16 08:12 Nasal Cannula 3.0 05/10/16 05:00 30 Intake and Output 05/10/16 05/10/16 05/11/16 15:00 23:00 07:00 Intake Total 700 ml 400 ml Balance 700 ml 400 ml Exam HEENT examination; supple neck, JVD difficult to see because of short neck. No thyromegaly, no neck bruits. No neck masses. Pharynx is clear. Chest examination; clear to auscultation bilaterally. S1-S2 audible, no murmurs. Regular rhythm. Abdomen exam is; grossly protuberant. Nontender. Bowel is audible. Organomegaly difficult to palpate.. Extremity exam is; trace peripheral edema. Pulses 2+ bilaterally. PROFESSOR OF MUSIC exam is; no focal deficit. Results Result Diagram: 05/11/16 0700 05/11/16 0700 Results 24 hrs Laboratory Tests Test 05/10/16 17:25 05/10/16 21:38 05/11/16 07:00 05/11/16 08:30 Bedside Glucose 116 109 122 White Blood Count 7.9 Red Blood Count 4.24 Hemoglobin 12.8 Hematocrit 44.2 Mean Corpuscular Volume 104.2 H Mean Corpuscular Hemoglobin 30.2 Mean Corpuscular Hemoglobin Concent 29.0 L Red Cell Distribution Width 13.7 Platelet Count 218 Mean Platelet Volume 12.2 H Neutrophils % 67.8 Lymphocytes % 20.3 Monocytes % 8.1 Eosinophils % 2.9 Basophils % 0.5 Nucleated Red Blood Cells % 0.0 Neutrophils # 5.4 Lymphocytes # 1.6 Monocytes # 0.6 Eosinophils # 0.2 Basophils # 0.0 Nucleated Red Blood Cells # 0.0 Sodium Level 138 Potassium Level 4.7 Chloride Level 99 Carbon Dioxide Level 33 H Anion Gap 11 Blood Urea Nitrogen 22 H Creatinine 0.71 Glucose Level 130 Calcium Level 8.6 Phosphorus Level 5.2 H Magnesium Level 2.2 Total Bilirubin 0.4 Direct Bilirubin 0.00 Indirect Bilirubin 0.4 Aspartate Amino Transf (AST/SGOT) 26 Alanine Aminotransferase (ALT/SGPT) 35 Alkaline Phosphatase 148 H B-Type Natriuretic Peptide 56 Total Protein 7.2 Albumin 3.5 Globulin 3.70 H Albumin/Globulin Ratio 0.94 Test 05/11/16 11:38 Bedside Glucose 136 Medications Medications Current Medications Lorazepam (Ativan) 0.5 mg Q6H PRN IV ANXIETY; Start 05/08/16 at 21:30 Metoclopramide HCl (Reglan) 10 mg Q6H PRN IV NAUSEA AND/OR VOMITING; Start at 21:30 Nitroglycerin (Nitroglycerin (Sl Tab) 0.4 Mg) 1 tab Q5M PRN SL CHEST PAIN; Start 05/08/16 at 21:30 Acetaminophen (Tylenol Tab) 650 mg Q6H PRN PO PAIN LEVEL 1-3 OR FEVER; Start at 21:30 Acetaminophen/ Hydrocodone Bitart ([place] (5/325)) 1 tab Q6H PRN PO PAIN LEVEL 4 -6; Start 05/08/16 at 21:30 Morphine Sulfate (morphine) 2 mg Q4H PRN IV PAIN LEVEL 7-10; Start 05/08/16 at 21:30 Enoxaparin Sodium (Lovenox) 40 mg DAILY SC Last administered on 05/11/16 09:01 ; Admin Dose 40 MG; Start 05/09/16 at 09:00 Aspirin (Halfprin) 81 mg DAILY PO Last administered on 05/11/16 08:57; Admin Dose 81 MG; Start 05/10/16 at 09:00 Lisinopril (Zestril) 5 mg DAILY PO Last administered on 05/10/16 08:54; Admin Dose 5 MG; Start 05/10/16 at 09:00 Atorvastatin Calcium (Lipitor) 40 mg HS PO Last administered on 05/10/16 21:41 ; Admin Dose 40 MG; Start 05/09/16 at 21:00 Acetazolamide (Diamox) 500 mg DAILY IV Last administered on 05/11/16 08:58; Admin Dose 500 MG; Start 05/10/16 at 10:00 Pantoprazole (Protonix Tab) 40 mg BID@,18 PO Last administered on 05/11/16 06:38; Admin Dose 40 MG; Start 05/10/16 at 18:00 Diagnostic Test (Pha) (Accu-Chek) 1 ea 02 XX ; Start 05/11/16 at 02:00 Miscellaneous Information 1 ea NOTE XX ; Start 05/10/16 at 15:30 Glucose (Glutose) 15 gm Q15M PRN PO DECREASED GLUCOSE; Start 05/10/16 at 15:30 Glucose (Glutose) 22.5 gm Q15M PRN PO DECREASED GLUCOSE; Start 05/10/16 at 15: 30 Dextrose (D50w Syringe) 25 ml Q15M PRN IV DECREASED GLUCOSE; Start 05/10/16 at 15:30 Dextrose (D50w Syringe) 50 ml Q15M PRN IV DECREASED GLUCOSE; Start 05/10/16 at 15:30 Glucagon (Glucagen) 1 mg Q15M PRN IM DECREASED GLUCOSE; Start 05/10/16 at 15:30 Glucose (Glutose) 15 gm Q15M PRN BUCCAL DECREASED GLUCOSE; Start 05/10/16 at 15 :30 FEDE MCGRATH May 11, 2016 14:34
[2016-05-11] MEDS ORDERED: BISACODYL (EC) 5 MG TAB PO ONE (15:00)
[2016-05-11] MEDS ORDERED: BARIUM SULF 2% 450 ML BTL (BERRY SMOOTHIE) PO ONE (15:30)
[2016-05-11] MEDS: ATORVASTATIN 40 MG TAB PO SCH (20:12)
[2016-05-12] VITALS (13 sets, daily range): BP systolic 98–125; BP diastolic 47–62; PULSE 65–91; RESP 17–20
--- NOTE | 2016-05-12 01:36 | RADRPT ---
PROCEDURE: CT abdomen and pelvis without contrast. CLINICAL INDICATION: Rectal bleeding TECHNIQUE: CT scan of the abdomen and pelvis without contrast was performed. Approximately 900 cc of oral contrast media are administered Sagittal and coronal reformatted images were obtained from [facility] axial source images. CTDI = 23.73 mGy; DLP = 1389.75 mGy-cm COMPARISON: None available. FINDINGS: Visualized lower thorax: Scattered subsegmental atelectasis or scarring within the left greater eugenio n right lower lobe is present. The visualized heart is mildly enlarged. There is no evidence for p leural effusion. Liver, gallbladder, pancreas and spleen: Mild hepatomegaly of 20 cm with hepatic steatosis but pres erved liver contour. There is no evidence for a liver mass or ductal dilatation. The gallbladder i s unremarkable. No common bile duct abnormality is demonstrated. The pancreas is unremarkable. Th e spleen is normal in size. Adrenal glands and genitourinary system: The adrenal glands are normal bilaterally. The kidneys are normal and size, contour and attenuation with no evidence for masses, calculi or hydronephrosis. T he ureters are unremarkable. No urinary bladder abnormality is demonstrated. Slightly lobulated co ntour to the uterus with a punctate right fundal calcification unable to exclude a leiomyoma. No ov raegan or adnexal masses evident and there is no free fluid in the cul-de-sac. Gastrointestinal system: The stomach is adequately opacified with contrast shows no wall thickening or filling defect. The small bowel is normal in caliber with no ileus, obstruction or wall thicken ing, the enteric contrast media has reached the mid to distal ileum. The appendix and surrounding f at are within the limits of normal. Diverticular disease is seen within the descending and sigmoid colon, moderate to severe in degree. There is no evidence for colitis or diverticulitis. Peritoneum, retroperitoneum, lymph nodes and vessels: The abdominal aorta is normal in caliber. The re is no evidence for atherosclerotic calcification. The inferior vena cava is unremarkable. There is no evidence for adenopathy or mass. There is no ascites. A fat containing ventral hernia is kelli roximately 7 cm in greatest dimension, no inflammation in the hernia sac Osseous structures and musculoskeletal findings: There is no fracture, lytic or blastic lesion. Vac uum facet phenomenon and facet arthropathy is greatest at L4-5 and L5-S1 No muscular abnormality is present. Copious subcutaneous adipose tissue is consistent with morbid obesity. RPTAT:HJJR IMPRESSION: 1. Diverticular disease of the descending and sigmoid colon without diverticulitis, no other gastro intestinal abnormalities are evident to suggest an additional etiology for the patient's provided hi story. 2. Bibasilar subsegmental atelectasis and mild cardiomegaly. 3. Mild hepatomegaly and hepatic steatosis. 4. Probable small calcified uterine fundal leiomyoma. 5. Fat containing ventral/umbilical hernia. Physician Марина Date Time Electronically viewed and signed by Anthony Mahan Physician on 05/12/2016 01:35 JR/
[2016-05-12] MEDS: ACCU-CHEK XX SCH (02:00)
[2016-05-12] MEDS: PANTOPRAZOLE (EC) 40 MG TAB PO SCH ×2 (06:38→17:18)
[2016-05-12] MEDS: INSULIN ASPART [NOVOLOG] 3 ML PEN SC SCH ×4 (08:00→20:09)
[2016-05-12 08:05] LABS: ADD SCAN DIFF NO
[2016-05-12 08:06] LABS: ABNORMAL IP MESSAGE 1; BASOPHILS % 0.5 % (0.0-2.0); EOSINOPHILS # 0.2 10^3/ul (0.0-0.5); EOSINOPHILS % 2.3 % (0.0-7.0); HEMATOCRIT 46.4 % (37.0-47.0); HEMOGLOBIN 13.3 g/dl (12.0-16.0); LYMPHOCYTES # 1.4 10^3/ul (0.8-2.9); LYMPHOCYTES % 16.7 % (15.0-51.0); MEAN CORPUSCULAR HEMOGLOBIN 29.8 pg (29.0-33.0); MEAN CORPUSCULAR HGB CONC 28.7 g/dl (32.0-37.0); MEAN PLATELET VOLUME 11.8 fl (7.4-10.4); MONOCYTE # 0.5 10^3/ul (0.3-0.9); MONOCYTES % 6.7 % (0.0-11.0); NEUTROPHIL # 5.9 10^3/ul (1.6-7.5); NEUTROPHILS % 73.4 % (39.0-77.0); PLATELET COUNT 236 10^3/UL (140-415); RED BLOOD COUNT 4.46 10^6/ul (4.20-5.40); RED CELL DISTRIBUTION WIDTH 13.6 % (11.5-14.5); WHITE BLOOD COUNT 8.1 10^3/ul (4.8-10.8)
[2016-05-12] MEDS: ASPIRIN (EC) 81 MG TAB PO SCH (08:21)
[2016-05-12] MEDS: LISINOPRIL 5 MG TAB PO SCH (08:21)
[2016-05-12] MEDS: ACETAZOLAMIDE 500 MG INJ IV SCH (08:21)
[2016-05-12] MEDS: ENOXAPARIN 40 MG/0.4 ML SYG SC SCH (08:27)
[2016-05-12 08:31] LABS: POTASSIUM 4.9 mmol/L (3.5-5.1)
[2016-05-12 08:33] LABS: CREATININE 0.65 mg/dl (0.44-1.00)
[2016-05-12 08:34] LABS: CALCIUM 8.7 mg/dl (8.4-10.2)
[2016-05-12] MEDS: ALBUTEROL 0.083% (NEB) 2.5 MG/3 ML AMP HHN SCH ×3 (09:10→19:44)
--- NOTE | 2016-05-12 12:28 | PN ---
Date/Time of Note Date/Time of Note DATE: 05/12/16 TIME: 12:26 Assessment/Plan VTE Prophylaxis VTE Prophylaxis Intervention: LMWH Lines/Catheters IV [facility]ter Type (from [facility]): Peripheral IV Urinary Cath still in place: No Assessment/Plan Chief Complaint/Hosp Course 1. Acute respiratory failure. Hypoxic and hypercapnic. Most probably secondary from underlying congestive heart failure exacerbation, diastolic dysfunction. The patient will be provided with adequate diuresis. The patient will be maintained on supplemental oxygen. She will also be maintained on inhaled bronchodilators around the clock and on a p.r.n. basis for any episodes of shortness of breath. Pulmonary following. 2. Congestive heart failure exacerbation. Acute on chronic. Diastolic dysfunction. Latest 2D echocardiogram from 05/09/2014 showing an ejection fraction of 60% and stage I diastolic dysfunction. The patient's chest x-ray is suggestive of pulmonary vascular congestion. The patient will be diuresed adequately. Cardiology following. 3. Possible underlying obstructive sleep apnea. The patient needs outpatient polysomnography. Continue nocturnal noninvasive positive pressure ventilation. 4. Elevated troponins. Currently normalized. Could be a type 2 event. Continue aspirin. Cardiology following. 5. Coronary artery disease. Status post stenting of the ostium and the proximal ramus with a bare metal stent in 06/2014. Continue aspirin. 6. Essential hypertension. The patient will be maintained on antihypertensives. The patient's blood pressure is well controlled at this time. 7. Type 2 diabetes mellitus. Newly diagnosed versus undiagnosed with a hemoglobin A1c of 6.9. Will continue the patient on sliding scale insulin. 8. Significant bradycardia. Avoid AV stanford blocking agents. Cardiology following. Monitor. 9. Morbid obesity. BMI of 49.9 kg/meter squared. Weight reduction advised. 10. Dyslipidemia. Continue statins. 11. Hematochezia. Stable H&H. Continue proton pump inhibitors. Gastroenterology following. Stool for OBX1 negative. 12. Pulmonary hypertension. PA pressure 44 mmHg. Continue supplemental oxygen. 13. Fluid, electrolytes and nutrition. The patient will be continued on a low cholesterol diet. 14. Deep venous thrombosis prophylaxis with subcutaneous Lovenox. 15. Gastrointestinal prophylaxis. Proton pump inhibitors. PLAN: Continue supplemental oxygen and inhaled bronchodilators. Follow Cardiology and Pulmonary recommendations. Await clearance from consultants before discharge. Case discussed with Dr. Damon. Problems: Subjective 24 Hr Interval Summary Free Text/Dictation No more episodes of bradycardia. Dyspnea improved. Exam/Review of Systems Vital Signs Vitals Vital Signs Date Time Temp Pulse Resp B/P Pulse Ox O2 Delivery O2 Flow Rate FiO2 05/12/16 12:09 65 05/12/16 09:11 16 94 Nasal Cannula 3.0 05/12/16 07:47 98.0 105/51 05/10/16 05:00 30 Intake and Output 05/11/16 05/11/16 05/12/16 14:59 22:59 06:59 Intake Total 400 ml 700 ml 200 ml Output Total 1000 ml Balance 400 ml -300 ml 200 ml Exam GENERAL: This is a morbidly obese female lying in bed in no apparent distress. HEENT: Normocephalic and atraumatic. Eyes: Anicteric sclerae. Conjunctivae clear. ENT: Nasal septum is midline. Oral mucosa is dry. NECK: Short with increased neck circumference. Unable to visualize any neck veins. CARDIAC: Regular rate and rhythm with a grade II/ systolic ejection murmur heard at the left sternal border. ABDOMEN: Soft, nontender and nondistended. Bowel sounds hypoactive in all 4 quadrants. GENITOURINARY: Deferred. EXTREMITIES: No cyanosis, no clubbing. Bilateral lower extremity 1+ pitting edema. Peripheral pulses palpable. NEUROLOGIC: Moves all four extremities. Awake, alert, and oriented. No focal deficits. Results Result Diagram: 05/12/16 0700 05/12/16 0700 Results 24 hrs Laboratory Tests Test 05/11/16 17:48 05/11/16 20:11 05/12/16 07:00 05/12/16 08:03 Bedside Glucose 107 159 121 White Blood Count 8.1 Red Blood Count 4.46 Hemoglobin 13.3 Hematocrit 46.4 Mean Corpuscular Volume 104.0 H Mean Corpuscular Hemoglobin 29.8 Mean Corpuscular Hemoglobin Concent 28.7 L Red Cell Distribution Width 13.6 Platelet Count 236 Mean Platelet Volume 11.8 H Neutrophils % 73.4 Lymphocytes % 16.7 Monocytes % 6.7 Eosinophils % 2.3 Basophils % 0.5 Nucleated Red Blood Cells % 0.0 Neutrophils # 5.9 Lymphocytes # 1.4 Monocytes # 0.5 Eosinophils # 0.2 Basophils # 0.0 Nucleated Red Blood Cells # 0.0 Sodium Level 142 Potassium Level 4.9 Chloride Level 103 Carbon Dioxide Level 31 Anion Gap 13 Blood Urea Nitrogen 17 Creatinine 0.65 Glucose Level 145 Calcium Level 8.7 Magnesium Level 2.3 Test 05/12/16 10:00 05/12/16 11:38 Stool Occult Blood NEGATIVE Bedside Glucose 107 Medications Medications Current Medications Lorazepam (Ativan) 0.5 mg Q6H PRN IV ANXIETY; Start 05/08/16 at 21:30 Metoclopramide HCl (Reglan) 10 mg Q6H PRN IV NAUSEA AND/OR VOMITING; Start at 21:30 Nitroglycerin (Nitroglycerin (Sl Tab) 0.4 Mg) 1 tab Q5M PRN SL CHEST PAIN; Start 05/08/16 at 21:30 Acetaminophen (Tylenol Tab) 650 mg Q6H PRN PO PAIN LEVEL 1-3 OR FEVER; Start at 21:30 Acetaminophen/ Hydrocodone Bitart ([place] (5/325)) 1 tab Q6H PRN PO PAIN LEVEL 4 -6; Start 05/08/16 at 21:30 Morphine Sulfate (morphine) 2 mg Q4H PRN IV PAIN LEVEL 7-10; Start 05/08/16 at 21:30 Enoxaparin Sodium (Lovenox) 40 mg DAILY SC Last administered on 05/12/16 08:27 ; Admin Dose 40 MG; Start 05/09/16 at 09:00 Aspirin (Halfprin) 81 mg DAILY PO Last administered on 05/12/16 08:21; Admin Dose 81 MG; Start 05/10/16 at 09:00 Lisinopril (Zestril) 5 mg DAILY PO Last administered on 05/12/16 08:21; Admin Dose 5 MG; Start 05/10/16 at 09:00 Atorvastatin Calcium (Lipitor) 40 mg HS PO Last administered on 05/11/16 20:12 ; Admin Dose 40 MG; Start 05/09/16 at 21:00 Acetazolamide (Diamox) 500 mg DAILY IV Last administered on 05/12/16 08:21; Admin Dose 500 MG; Start 05/10/16 at 10:00 Pantoprazole (Protonix Tab) 40 mg BID@,18 PO Last administered on 05/12/16 06:38; Admin Dose 40 MG; Start 05/10/16 at 18:00 Diagnostic Test (Pha) (Accu-Chek) 1 ea 02 XX ; Start 05/11/16 at 02:00 Miscellaneous Information 1 ea NOTE XX ; Start 05/10/16 at 15:30 Glucose (Glutose) 15 gm Q15M PRN PO DECREASED GLUCOSE; Start 05/10/16 at 15:30 Glucose (Glutose) 22.5 gm Q15M PRN PO DECREASED GLUCOSE; Start 05/10/16 at 15: 30 Dextrose (D50w Syringe) 25 ml Q15M PRN IV DECREASED GLUCOSE; Start 05/10/16 at 15:30 Dextrose (D50w Syringe) 50 ml Q15M PRN IV DECREASED GLUCOSE; Start 05/10/16 at 15:30 Glucagon (Glucagen) 1 mg Q15M PRN IM DECREASED GLUCOSE; Start 05/10/16 at 15:30 Glucose (Glutose) 15 gm Q15M PRN BUCCAL DECREASED GLUCOSE; Start 05/10/16 at 15 :30 SHARLENE CHOWDHURY NP May 12, 2016 12:28
--- NOTE | 2016-05-12 14:26 | CONS ---
Date/Time of Note Date/Time of Note DATE: 05/12/16 TIME: 14:24 Assessment/Plan Assessment/Plan Additional Assessment/Plan Assessment * Hematochezia (minimal 2 tsp) * R/O Diverticulosis * R/O Tumors * R/O Bleeding Hemorrhoids * CT abdomen in process * Hypoxemic respiratory failure * Likely diastolic dysfunction with pulmonary edema * Obstructive sleep apnea * Morbid obesity Plan * Stool for occult blood x3 * Monitor H and H Q6 transfuse 1 unit PRBC if hemoglobin is less than 7.5,2 units if hgb is less howard 7 * Planned for colonoscopy once stable * Further recommendations pending clinical course * Patient seen in collaboration with Dr. Ramírez Consultation Date/Type/Reason Admit Date/Time May 08, 2016 at 20:03 Initial Consult Date 05/09/16 Type of Consultation: GI 24 HR Interval Summary Free Text/Dictation Tolerating diet Stool OB in process Hemoglobin stable Exam/Review of Systems Vital Signs Vitals Vital Signs Date Time Temp Pulse Resp B/P Pulse Ox O2 Delivery O2 Flow Rate FiO2 05/12/16 13:10 68 20 93 Nasal Cannula 1.0 05/12/16 12:46 97.6 118/56 05/10/16 05:00 30 Intake and Output 05/11/16 05/11/16 05/12/16 15:00 23:00 07:00 Intake Total 700 ml 200 ml Output Total 1000 ml Balance -300 ml 200 ml Exam Constitutional: alert, oriented, well developed, obese Psych: nl mood/affect Head: normocephalic Eyes: EOMI, nl conjunctiva, nl lids ENMT: nl external ears & nose, nl lips & teeth, nl nasal mucosa & septum Respiratory: clear to auscultation, normal air movement Cardiovascular: regular rate and rhythm Gastrointestinal: soft, non tender Musculoskeletal: nl extremities to inspection Neurological: LIMOUSINE DRIVER II-XII intact Results Result Diagram: 05/12/16 0700 05/12/16 0700 Results 24 hrs Laboratory Tests Test 05/11/16 17:48 05/11/16 20:11 05/12/16 07:00 05/12/16 08:03 Bedside Glucose 107 159 121 White Blood Count 8.1 Red Blood Count 4.46 Hemoglobin 13.3 Hematocrit 46.4 Mean Corpuscular Volume 104.0 H Mean Corpuscular Hemoglobin 29.8 Mean Corpuscular Hemoglobin Concent 28.7 L Red Cell Distribution Width 13.6 Platelet Count 236 Mean Platelet Volume 11.8 H Neutrophils % 73.4 Lymphocytes % 16.7 Monocytes % 6.7 Eosinophils % 2.3 Basophils % 0.5 Nucleated Red Blood Cells % 0.0 Neutrophils # 5.9 Lymphocytes # 1.4 Monocytes # 0.5 Eosinophils # 0.2 Basophils # 0.0 Nucleated Red Blood Cells # 0.0 Sodium Level 142 Potassium Level 4.9 Chloride Level 103 Carbon Dioxide Level 31 Anion Gap 13 Blood Urea Nitrogen 17 Creatinine 0.65 Glucose Level 145 Calcium Level 8.7 Magnesium Level 2.3 Test 05/12/16 10:00 05/12/16 11:38 Stool Occult Blood NEGATIVE Bedside Glucose 107 Medications Medications Current Medications Lorazepam (Ativan) 0.5 mg Q6H PRN IV ANXIETY; Start 05/08/16 at 21:30 Metoclopramide HCl (Reglan) 10 mg Q6H PRN IV NAUSEA AND/OR VOMITING; Start at 21:30 Nitroglycerin (Nitroglycerin (Sl Tab) 0.4 Mg) 1 tab Q5M PRN SL CHEST PAIN; Start 05/08/16 at 21:30 Acetaminophen (Tylenol Tab) 650 mg Q6H PRN PO PAIN LEVEL 1-3 OR FEVER; Start at 21:30 Acetaminophen/ Hydrocodone Bitart ([place] (5/325)) 1 tab Q6H PRN PO PAIN LEVEL 4 -6; Start 05/08/16 at 21:30 Morphine Sulfate (morphine) 2 mg Q4H PRN IV PAIN LEVEL 7-10; Start 05/08/16 at 21:30 Enoxaparin Sodium (Lovenox) 40 mg DAILY SC Last administered on 05/12/16 08:27 ; Admin Dose 40 MG; Start 05/09/16 at 09:00 Aspirin (Halfprin) 81 mg DAILY PO Last administered on 05/12/16 08:21; Admin Dose 81 MG; Start 05/10/16 at 09:00 Lisinopril (Zestril) 5 mg DAILY PO Last administered on 05/12/16 08:21; Admin Dose 5 MG; Start 05/10/16 at 09:00 Atorvastatin Calcium (Lipitor) 40 mg HS PO Last administered on 3/25/17at 20:12 ; Admin Dose 40 MG; Start 05/09/16 at 21:00 Acetazolamide (Diamox) 500 mg DAILY IV Last administered on 05/12/16 08:21; Admin Dose 500 MG; Start 05/10/16 at 10:00 Pantoprazole (Protonix Tab) 40 mg BID@06,18 PO Last administered on 05/12/16 06:38; Admin Dose 40 MG; Start 05/10/16 at 18:00 Diagnostic Test (Pha) (Accu-Chek) 1 ea 02 XX ; Start 05/11/16 at 02:00 Miscellaneous Information 1 ea NOTE XX ; Start 05/10/16 at 15:30 Glucose (Glutose) 15 gm Q15M PRN PO DECREASED GLUCOSE; Start 05/10/16 at 15:30 Glucose (Glutose) 22.5 gm Q15M PRN PO DECREASED GLUCOSE; Start 05/10/16 at 15: 30 Dextrose (D50w Syringe) 25 ml Q15M PRN IV DECREASED GLUCOSE; Start 05/10/16 at 15:30 Dextrose (D50w Syringe) 50 ml Q15M PRN IV DECREASED GLUCOSE; Start 05/10/16 at 15:30 Glucagon (Glucagen) 1 mg Q15M PRN IM DECREASED GLUCOSE; Start 05/10/16 at 15:30 Glucose (Glutose) 15 gm Q15M PRN BUCCAL DECREASED GLUCOSE; Start 05/10/16 at 15 :30 Bisacodyl (Dulcolax) 10 mg ONCE ONCE PO ; Start 05/12/16 at 14:30; Stop at 14:31 RICHA CENTENO May 12, 2016 14:26
[2016-05-12] MEDS ORDERED: BISACODYL (EC) 5 MG TAB PO ONE (14:30)
[2016-05-12] MEDS: ATORVASTATIN 40 MG TAB PO SCH (20:09)
[2016-05-13] VITALS (11 sets, daily range): BP systolic 98–129; BP diastolic 50–66; PULSE 57–70; RESP 19–67
[2016-05-13] MEDS: ACCU-CHEK XX SCH (02:00)
[2016-05-13] MEDS: PANTOPRAZOLE (EC) 40 MG TAB PO SCH ×2 (06:06→17:18)
[2016-05-13 07:06] LABS: ADD SCAN DIFF NO
[2016-05-13 07:10] LABS: ABNORMAL IP MESSAGE 1; BASOPHILS % 0.4 % (0.0-2.0); EOSINOPHILS # 0.2 10^3/ul (0.0-0.5); EOSINOPHILS % 2.9 % (0.0-7.0); HEMATOCRIT 44.8 % (37.0-47.0); HEMOGLOBIN 12.9 g/dl (12.0-16.0); LYMPHOCYTES # 1.5 10^3/ul (0.8-2.9); LYMPHOCYTES % 20.3 % (15.0-51.0); MEAN CORPUSCULAR HEMOGLOBIN 30.1 pg (29.0-33.0); MEAN CORPUSCULAR HGB CONC 28.8 g/dl (32.0-37.0); MEAN CORPUSCULAR VOLUME 104.7 fl (82.0-101.0); MEAN PLATELET VOLUME 11.5 fl (7.4-10.4); MONOCYTE # 0.6 10^3/ul (0.3-0.9); MONOCYTES % 8.8 % (0.0-11.0); NEUTROPHIL # 4.9 10^3/ul (1.6-7.5); NEUTROPHILS % 67.3 % (39.0-77.0); PLATELET COUNT 215 10^3/UL (140-415); RED BLOOD COUNT 4.28 10^6/ul (4.20-5.40); RED CELL DISTRIBUTION WIDTH 13.7 % (11.5-14.5); WHITE BLOOD COUNT 7.3 10^3/ul (4.8-10.8)
[2016-05-13 07:28] LABS: CREATININE 0.77 mg/dl (0.44-1.00)
[2016-05-13 07:29] LABS: CALCIUM 8.4 mg/dl (8.4-10.2)
[2016-05-13] MEDS: ALBUTEROL 0.083% (NEB) 2.5 MG/3 ML AMP HHN SCH ×3 (07:54→19:59)
[2016-05-13] MEDS: INSULIN ASPART [NOVOLOG] 3 ML PEN SC SCH ×4 (08:00→20:38)
[2016-05-13] MEDS: ASPIRIN (EC) 81 MG TAB PO SCH (08:16)
[2016-05-13] MEDS: ACETAZOLAMIDE 500 MG INJ IV SCH (08:16)
[2016-05-13] MEDS: LISINOPRIL 5 MG TAB PO SCH (08:16)
[2016-05-13] MEDS: ENOXAPARIN 40 MG/0.4 ML SYG SC SCH (08:19)
--- NOTE | 2016-05-13 11:09 | PN ---
Date/Time of Note Date/Time of Note DATE: 05/13/16 TIME: 10:55 Assessment/Plan VTE Prophylaxis VTE Prophylaxis Intervention: SCD's Lines/Catheters IV [facility] ([facility] Peripheral IV Urinary Cath still in place: No Assessment/Plan Chief Complaint/Hosp Course Problems: Assessment/Plan Assessment * Hematochezia asymptomatic * Diverticular disease of sigmoid and descending colon * Hypoxemic respiratory failure (Improved) * Likely diastolic dysfunction with pulmonary edema * Obstructive sleep apnea * Morbid obesity * CT abdomen Diverticular disease of the descending and sigmoid colon without diverticulitis, no other gastrointestinal abnormalities are evident to suggest an additional etiology for the patient's provided history. Bibasilar subsegmental atelectasis and mild cardiomegaly. Mild hepatomegaly and hepatic steatosis Probable small calcified uterine fundal leiomyoma. Fat containing ventral/umbilical hernia. Plan * Monitor H and H Q6 transfuse 1 unit PRBC if hemoglobin is less than 7.5,2 units if hgb is less howard 7 * Planned for colonoscopy once stable Subjective 24 Hr Interval Summary Free Text/Dictation * course reviewed with nursing staff * patient seen and examined * tolerating diet/no active bleeding,no melena,no hematochezia * latest hemoglobin 12.9 * CT abdomen pelvis 05/11/2016 Diverticular disease of the descending and sigmoid colon without diverticulitis, no other gastrointestinal abnormalities are evident to suggest an additional etiology for the patient's provided history. Bibasilar subsegmental atelectasis and mild cardiomegaly. Mild hepatomegaly and hepatic steatosis Probable small calcified uterine fundal leiomyoma. Fat containing ventral/umbilical hernia. * stool occult blood negative Exam/Review of Systems Vital Signs Vitals Vital Signs Date Time Temp Pulse Resp B/P Pulse Ox O2 Delivery O2 Flow Rate FiO2 05/13/16 08:20 63 05/13/16 07:56 98.0 20 120/55 98 05/13/16 07:54 4.0 05/13/16 07:54 Nasal Cannula 05/12/16 19:44 24 Intake and Output 05/12/16 05/12/16 05/13/16 15:00 23:00 07:00 Intake Total 700 ml 250 ml Output Total 1500 ml Balance -800 ml 250 ml Exam Constitutional: alert, oriented, well developed, obese Psych: nl mood/affect Head: normocephalic Respiratory: clear to auscultation, normal air movement Cardiovascular: regular rate and rhythm Gastrointestinal: soft, non tender,norrmoactive bowel sounds Musculoskeletal: nl extremities to inspection Results Result Diagram: 05/13/16 0600 05/13/16 0600 Results 24 hrs Laboratory Tests Test 05/12/16 11:38 05/12/16 17:14 05/12/16 20:07 05/13/16 06:00 Bedside Glucose 107 109 149 White Blood Count 7.3 Red Blood Count 4.28 Hemoglobin 12.9 Hematocrit 44.8 Mean Corpuscular Volume 104.7 H Mean Corpuscular Hemoglobin 30.1 Mean Corpuscular Hemoglobin Concent 28.8 L Red Cell Distribution Width 13.7 Platelet Count 215 Mean Platelet Volume 11.5 H Neutrophils % 67.3 Lymphocytes % 20.3 Monocytes % 8.8 Eosinophils % 2.9 Basophils % 0.4 Nucleated Red Blood Cells % 0.0 Neutrophils # 4.9 Lymphocytes # 1.5 Monocytes # 0.6 Eosinophils # 0.2 Basophils # 0.0 Nucleated Red Blood Cells # 0.0 Sodium Level 137 Potassium Level 5.0 Chloride Level 100 Carbon Dioxide Level 30 Anion Gap 12 Blood Urea Nitrogen 23 H Creatinine 0.77 Glucose Level 140 Calcium Level 8.4 Magnesium Level 2.2 Test 05/13/16 07:40 Bedside Glucose 138 Medications Medications Current Medications Lorazepam (Ativan) 0.5 mg Q6H PRN IV ANXIETY; Start 05/08/16 at 21:30 Metoclopramide HCl (Reglan) 10 mg Q6H PRN IV NAUSEA AND/OR VOMITING; Start at 21:30 Nitroglycerin (Nitroglycerin (Sl Tab) 0.4 Mg) 1 tab Q5M PRN SL CHEST PAIN; Start 05/08/16 at 21:30 Acetaminophen (Tylenol Tab) 650 mg Q6H PRN PO PAIN LEVEL 1-3 OR FEVER; Start at 21:30 Acetaminophen/ Hydrocodone Bitart ([place] (5/325)) 1 tab Q6H PRN PO PAIN LEVEL 4 -6; Start 05/08/16 at 21:30 Morphine Sulfate (morphine) 2 mg Q4H PRN IV PAIN LEVEL 7-10; Start 05/08/16 at 21:30 Enoxaparin Sodium (Lovenox) 40 mg DAILY SC Last administered on 05/13/16 08:19 ; Admin Dose 40 MG; Start 05/09/16 at 09:00 Aspirin (Halfprin) 81 mg DAILY PO Last administered on 05/13/16 08:16; Admin Dose 81 MG; Start 05/10/16 at 09:00 Lisinopril (Zestril) 5 mg DAILY PO Last administered on 05/13/16 08:16; Admin Dose 5 MG; Start 05/10/16 at 09:00 Atorvastatin Calcium (Lipitor) 40 mg HS PO Last administered on 05/12/16 20:09 ; Admin Dose 40 MG; Start 05/09/16 at 21:00 Acetazolamide (Diamox) 500 mg DAILY IV Last administered on 05/13/16 08:16; Admin Dose 500 MG; Start 05/10/16 at 10:00 Pantoprazole (Protonix Tab) 40 mg BID@,18 PO Last administered on 05/13/16 06:06; Admin Dose 40 MG; Start 05/10/16 at 18:00 Diagnostic Test (Pha) (Accu-Chek) 1 ea 02 XX ; Start 05/11/16 at 02:00 Miscellaneous Information 1 ea NOTE XX ; Start 05/10/16 at 15:30 Glucose (Glutose) 15 gm Q15M PRN PO DECREASED GLUCOSE; Start 05/10/16 at 15:30 Glucose (Glutose) 22.5 gm Q15M PRN PO DECREASED GLUCOSE; Start 05/10/16 at 15: 30 Dextrose (D50w Syringe) 25 ml Q15M PRN IV DECREASED GLUCOSE; Start 05/10/16 at 15:30 Dextrose (D50w Syringe) 50 ml Q15M PRN IV DECREASED GLUCOSE; Start 05/10/16 at 15:30 Glucagon (Glucagen) 1 mg Q15M PRN IM DECREASED GLUCOSE; Start 05/10/16 at 15:30 Glucose (Glutose) 15 gm Q15M PRN BUCCAL DECREASED GLUCOSE; Start 05/10/16 at 15 :30 GEOVANNY KENYON MD May 13, 2016 11:06 GEOVANNY KENYON MD May 13, 2016 11:06
--- NOTE | 2016-05-13 15:08 | PN ---
Date/Time of Note Date/Time of Note DATE: 05/13/16 TIME: 14:57 Assessment/Plan VTE Prophylaxis VTE Prophylaxis Intervention: LMWH Lines/Catheters [facility] Peripheral IV Urinary Cath still in place: No Assessment/Plan Chief Complaint/Hosp Course Assessment and plan: 1. Acute respiratory failure. likely secondary to underlying CHF (diastolic dysfunction). cont on diuretics. titrate down o2 as tolerated 2. elevated troponin. Suspect demand ischemia. Continue on antiplatelet therapy. [employer] following 3. History of CHF. Patient with known diastolic dysfunction. Latest echocardiogram done on 05/09/2016 showed ejection fraction of 60% 4. hx CAD. patient with history of stenting of ostium and proximal ramus iwth bare metal stent. cont on antiplatelet tharpy 5. Essential Hypertension. Cont on antihypertensives and adjust as needed 6. Type 2 Diabtes. Cont on insulin regimen. a1c noted at 6.9. 7. Bradycardia. Cont telemetry monitoring. AV stan[place] blocking agents to be avoided. cont with cardiology recs 8. Morbid Obesity. Weight reduction advised. 9. Reproted hematochezia. cont on PPI. follow up occult stool. Tentative plan for colonoscopy per GI 10. hx Pulmonary hypertension. Cont on o2 as needed DVT prophylaxis: lovenox GERD prophylaxis: PPI Discussed plan of care with Dr. Duncan Problems: Subjective 24 Hr Interval Summary Free Text/Dictation still reports having some shortness of breath. more notably on exertion. reports less swelling BLE Exam/Review of Systems Vital Signs Vitals Vital Signs Date Time Temp Pulse Resp B/P Pulse Ox O2 Delivery O2 Flow Rate FiO2 05/13/16 13:30 64 18 91 Nasal Cannula 2.0 05/13/16 12:04 98.0 129/60 05/12/16 19:44 24 Intake and Output 05/12/16 05/12/16 05/13/16 15:00 23:00 07:00 Intake Total 700 ml 250 ml Output Total 1500 ml Balance -800 ml 250 ml Exam General: No acute signs or symptoms of distress Eyes: pupils equal round, Anicteric sclera Neck: Supple nontender, no JVD Cardiac: remain sin regular rate/ minimal murmur auscultated Pulmonary: No coarse rhonchi or breathing auscultated GI: Abdomen soft nontender nondistended, bowel sounds active Extremities: edema BLE Skin: Clean dry and intact Neurologic: Alert to person place and time and situation Results Result Diagram: 05/13/16 0600 05/13/16 0600 Results 24 hrs Laboratory Tests Test 05/12/16 17:14 05/12/16 20:07 05/13/16 06:00 05/13/16 07:40 Bedside Glucose 109 149 138 White Blood Count 7.3 Red Blood Count 4.28 Hemoglobin 12.9 Hematocrit 44.8 Mean Corpuscular Volume 104.7 H Mean Corpuscular Hemoglobin 30.1 Mean Corpuscular Hemoglobin Concent 28.8 L Red Cell Distribution Width 13.7 Platelet Count 215 Mean Platelet Volume 11.5 H Neutrophils % 67.3 Lymphocytes % 20.3 Monocytes % 8.8 Eosinophils % 2.9 Basophils % 0.4 Nucleated Red Blood Cells % 0.0 Neutrophils # 4.9 Lymphocytes # 1.5 Monocytes # 0.6 Eosinophils # 0.2 Basophils # 0.0 Nucleated Red Blood Cells # 0.0 Sodium Level 137 Potassium Level 5.0 Chloride Level 100 Carbon Dioxide Level 30 Anion Gap 12 Blood Urea Nitrogen 23 H Creatinine 0.77 Glucose Level 140 Calcium Level 8.4 Magnesium Level 2.2 Test 05/13/16 11:30 Bedside Glucose 113 Medications Medications Current Medications Lorazepam (Ativan) 0.5 mg Q6H PRN IV ANXIETY; Start 05/08/16 at 21:30 Metoclopramide HCl (Reglan) 10 mg Q6H PRN IV NAUSEA AND/OR VOMITING; Start at 21:30 Nitroglycerin (Nitroglycerin (Sl Tab) 0.4 Mg) 1 tab Q5M PRN SL CHEST PAIN; Start 05/08/16 at 21:30 Acetaminophen (Tylenol Tab) 650 mg Q6H PRN PO PAIN LEVEL 1-3 OR FEVER; Start at 21:30 Acetaminophen/ Hydrocodone Bitart ([place] (5/325)) 1 tab Q6H PRN PO PAIN LEVEL 4 -6; Start 05/08/16 at 21:30 Morphine Sulfate (morphine) 2 mg Q4H PRN IV PAIN LEVEL 7-10; Start 05/08/16 at 21:30 Enoxaparin Sodium (Lovenox) 40 mg DAILY SC Last administered on 05/13/16t 08:19 ; Admin Dose 40 MG; Start 05/09/16 at 09:00 Aspirin (Halfprin) 81 mg DAILY PO Last administered on 05/13/16 08:16; Admin Dose 81 MG; Start 05/10/16 at 09:00 Lisinopril (Zestril) 5 mg DAILY PO Last administered on 05/13/16 08:16; Admin Dose 5 MG; Start 05/10/16 at 09:00 Atorvastatin Calcium (Lipitor) 40 mg HS PO Last administered on 05/12/16 20:09 ; Admin Dose 40 MG; Start 05/09/16 at 21:00 Acetazolamide (Diamox) 500 mg DAILY IV Last administered on 05/13/16 08:16; Admin Dose 500 MG; Start 05/10/16 at 10:00 Pantoprazole (Protonix Tab) 40 mg BID@,18 PO Last administered on 05/13/16 06:06; Admin Dose 40 MG; Start 05/10/16 at 18:00 Diagnostic Test (Pha) (Accu-Chek) 1 ea 02 XX ; Start 05/11/16 at 02:00 Miscellaneous Information 1 ea NOTE XX ; Start 05/10/16 at 15:30 Glucose (Glutose) 15 gm Q15M PRN PO DECREASED GLUCOSE; Start 05/10/16 at 15:30 Glucose (Glutose) 22.5 gm Q15M PRN PO DECREASED GLUCOSE; Start 05/10/16 at 15: 30 Dextrose (D50w Syringe) 25 ml Q15M PRN IV DECREASED GLUCOSE; Start 05/10/16 at 15:30 Dextrose (D50w Syringe) 50 ml Q15M PRN IV DECREASED GLUCOSE; Start 05/10/16 at 15:30 Glucagon (Glucagen) 1 mg Q15M PRN IM DECREASED GLUCOSE; Start 05/10/16 at 15:30 Glucose (Glutose) 15 gm Q15M PRN BUCCAL DECREASED GLUCOSE; Start 05/10/16 at 15 :30 DIANA HERMOSILLO May 13, 2016 15:08
--- NOTE | 2016-05-13 15:45 | CONS ---
Date/Time of Note Date/Time of Note DATE: 05/13/16 TIME: 15:43 Consult Date/Type/Reason Admit Date/Time May 08, 2016 at 20:03 Initial Consult Date 05/09/16 Type of Consultation: pulmonary Subjective Sitting up in chair appears comfortable at rest no acute distress Objective Vital Signs Date Time Temp Pulse Resp B/P Pulse Ox O2 Delivery O2 Flow Rate FiO2 05/13/16 13:30 64 18 91 Nasal Cannula 2.0 05/13/16 12:04 98.0 129/60 05/12/16 19:44 24 Intake and Output 05/12/16 05/12/16 05/13/16 15:00 23:00 07:00 Intake Total 700 ml 250 ml Output Total 1500 ml Balance -800 ml 250 ml Exam GENERAL: Obese lady comfortable at rest no acute distress VITAL SIGNS: per chart NECK: Supple. No JVD or lymphadenopathy. CARDIAC EXAM: S1, S2. No added sounds or murmurs. CHEST: Diminished air entry both lung bases ABDOMEN: Soft, nontender. No guarding or rebound. Obese EXTREMITIES: No cyanosis, clubbing edema +1 NEUROLOGIC: Generalized weakness. No focal deficits. Results/Medications Result Diagram: 05/13/16 0600 05/13/16 0600 Results 24 hrs Laboratory Tests Test 05/12/16 17:14 05/12/16 20:07 05/13/16 06:00 05/13/16 07:40 Bedside Glucose 109 149 138 White Blood Count 7.3 Red Blood Count 4.28 Hemoglobin 12.9 Hematocrit 44.8 Mean Corpuscular Volume 104.7 H Mean Corpuscular Hemoglobin 30.1 Mean Corpuscular Hemoglobin Concent 28.8 L Red Cell Distribution Width 13.7 Platelet Count 215 Mean Platelet Volume 11.5 H Neutrophils % 67.3 Lymphocytes % 20.3 Monocytes % 8.8 Eosinophils % 2.9 Basophils % 0.4 Nucleated Red Blood Cells % 0.0 Neutrophils # 4.9 Lymphocytes # 1.5 Monocytes # 0.6 Eosinophils # 0.2 Basophils # 0.0 Nucleated Red Blood Cells # 0.0 Sodium Level 137 Potassium Level 5.0 Chloride Level 100 Carbon Dioxide Level 30 Anion Gap 12 Blood Urea Nitrogen 23 H Creatinine 0.77 Glucose Level 140 Calcium Level 8.4 Magnesium Level 2.2 Test 05/13/16 11:30 Bedside Glucose 113 Medications Current Medications Lorazepam (Ativan) 0.5 mg Q6H PRN IV ANXIETY; Start 05/08/16 at 21:30 Metoclopramide HCl (Reglan) 10 mg Q6H PRN IV NAUSEA AND/OR VOMITING; Start at 21:30 Nitroglycerin (Nitroglycerin (Sl Tab) 0.4 Mg) 1 tab Q5M PRN SL CHEST PAIN; Start 05/08/16 at 21:30 Acetaminophen (Tylenol Tab) 650 mg Q6H PRN PO PAIN LEVEL 1-3 OR FEVER; Start at 21:30 Acetaminophen/ Hydrocodone Bitart ([place] (5/325)) 1 tab Q6H PRN PO PAIN LEVEL 4 -6; Start 05/08/16 at 21:30 Morphine Sulfate (morphine) 2 mg Q4H PRN IV PAIN LEVEL 7-10; Start 05/08/16 at 21:30 Enoxaparin Sodium (Lovenox) 40 mg DAILY SC Last administered on 05/13/16 08:19 ; Admin Dose 40 MG; Start 05/09/16 at 09:00 Aspirin (Halfprin) 81 mg DAILY PO Last administered on 05/13/16 08:16; Admin Dose 81 MG; Start 05/10/16 at 09:00 Lisinopril (Zestril) 5 mg DAILY PO Last administered on 05/13/16 08:16; Admin Dose 5 MG; Start 05/10/16 at 09:00 Atorvastatin Calcium (Lipitor) 40 mg HS PO Last administered on 05/12/16 20:09 ; Admin Dose 40 MG; Start 05/09/16 at 21:00 Acetazolamide (Diamox) 500 mg DAILY IV Last administered on 05/13/16 08:16; Admin Dose 500 MG; Start 05/10/16 at 10:00 Pantoprazole (Protonix Tab) 40 mg BID@,18 PO Last administered on 05/13/16 06:06; Admin Dose 40 MG; Start 05/10/16 at 18:00 Diagnostic Test (Pha) (Accu-Chek) 1 ea 02 XX ; Start 05/11/16 at 02:00 Miscellaneous Information 1 ea NOTE XX ; Start 05/10/16 at 15:30 Glucose (Glutose) 15 gm Q15M PRN PO DECREASED GLUCOSE; Start 05/10/16 at 15:30 Glucose (Glutose) 22.5 gm Q15M PRN PO DECREASED GLUCOSE; Start 05/10/16 at 15: 30 Dextrose (D50w Syringe) 25 ml Q15M PRN IV DECREASED GLUCOSE; Start 05/10/16 at 15:30 Dextrose (D50w Syringe) 50 ml Q15M PRN IV DECREASED GLUCOSE; Start 05/10/16 at 15:30 Glucagon (Glucagen) 1 mg Q15M PRN IM DECREASED GLUCOSE; Start 05/10/16 at 15:30 Glucose (Glutose) 15 gm Q15M PRN BUCCAL DECREASED GLUCOSE; Start 05/10/16 at 15 :30 Assessment/Plan Chief Complaint/Hosp Course Assessment 1. Status post Hypoxemic respiratory failure 2. Likely diastolic dysfunction with pulmonary edema 3. Obstructive sleep apnea 4. Morbid obesity 5. Elevated troponin agree likely demand ischemia Plan 1. Continue supplemental O2 will likely require home oxygen 2. Continue diuretics as tolerated 3. Encourage activities 4. Outpatient sleep study and pulmonary function testing Disposition Consider discharge planning Outpatient pulmonary function testing and sleep study Problems: GHAZAL LALA [facility], [facility] May 13, 2016 15:45
--- NOTE | 2016-05-13 19:30 | PN ---
DATE: 05/13/2016 CARDIOLOGY FOLLOWUP SUBJECTIVE: Discussed with the staff. Rhythm strip was reviewed. The patient remains in sinus rhy thm. No chest pain or pressure. ____ has remained stable. MEDICATIONS: Reviewed, which include: 1. Insulin. 2. Protonix. 3. Aspirin. 4. Lisinopril. 5. Lipitor. 6. ____. 7. The patient has been taken off of Coreg due to her bradycardia. PHYSICAL EXAMINATION: VITAL SIGNS: Temperature 98.6, heart rate 59, blood pressure 98/51, respiration rate of 20, saturat ing 92%. HEENT: Normocephalic, atraumatic. Obese female. Pupils are equal. CARDIOVASCULAR: Regular rate and rhythm. PULMONARY: With no wheezes heard. GASTROINTESTINAL: Obese, soft, nontender. EXTREMITIES: Trivial edema. NEUROLOGIC: Awake and alert. ASSESSMENT AND PLAN: 1. Mildly abnormal troponin, most likely consistent with false positive troponin, on medical therap y. 2. Congestive heart failure with secondary fluid overload, currently improved. 3. Pulmonary hypertension, probably a combination of congestive heart failure as well as pulmonary disease, possibly sleep apnea ____ obesity hypoventilation syndrome. 4. Coronary artery disease. 5. History of myocardial infarction. 6. History of percutaneous coronary intervention. 7. Diabetes. 8. Dyslipidemia. 9. History of poor compliance with medication. RECOMMENDATIONS: The patient is off of beta ely due to bradycardia. We will continue with the rest of her cardiac care. Dictated By: FAHAD SIERRA MD AV/GREG Conf#: [id number] DID#: [id number] CC: DIANA HERMOSILLO NP; EDSRAS BUENROSTRO MD;*[facility]*
[2016-05-13] MEDS: ATORVASTATIN 40 MG TAB PO SCH (20:44)
[2016-05-14] VITALS (11 sets, daily range): BP systolic 99–116; BP diastolic 46–56; PULSE 60–82; RESP 18–20
[2016-05-14] MEDS: ACCU-CHEK XX SCH (00:34)
[2016-05-14] MEDS: PANTOPRAZOLE (EC) 40 MG TAB PO SCH (05:51)
[2016-05-14] MEDS: ALBUTEROL 0.083% (NEB) 2.5 MG/3 ML AMP HHN SCH ×2 (07:58→13:46)
[2016-05-14] MEDS: INSULIN ASPART [NOVOLOG] 3 ML PEN SC SCH ×2 (08:00→12:14)
[2016-05-14 08:23] LABS: ADD SCAN DIFF NO
[2016-05-14 08:29] LABS: BASOPHILS % 0.5 % (0.0-2.0); EOSINOPHILS # 0.2 10^3/ul (0.0-0.5); EOSINOPHILS % 2.5 % (0.0-7.0); HEMOGLOBIN 13.1 g/dl (12.0-16.0); LYMPHOCYTES # 1.7 10^3/ul (0.8-2.9); LYMPHOCYTES % 20.1 % (15.0-51.0); MEAN CORPUSCULAR HEMOGLOBIN 30.1 pg (29.0-33.0); MEAN CORPUSCULAR HGB CONC 29.1 g/dl (32.0-37.0); MEAN CORPUSCULAR VOLUME 103.4 fl (82.0-101.0); MEAN PLATELET VOLUME 11.9 fl (7.4-10.4); MONOCYTE # 0.6 10^3/ul (0.3-0.9); MONOCYTES % 7.1 % (0.0-11.0); NEUTROPHIL # 5.8 10^3/ul (1.6-7.5); NEUTROPHILS % 69.6 % (39.0-77.0); PLATELET COUNT 204 10^3/UL (140-415); RED BLOOD COUNT 4.35 10^6/ul (4.20-5.40); RED CELL DISTRIBUTION WIDTH 13.6 % (11.5-14.5); WHITE BLOOD COUNT 8.3 10^3/ul (4.8-10.8)
[2016-05-14] MEDS: ASPIRIN (EC) 81 MG TAB PO SCH (09:00)
[2016-05-14] MEDS: LISINOPRIL 5 MG TAB PO SCH (09:00)
[2016-05-14] MEDS: ACETAZOLAMIDE 500 MG INJ IV SCH (09:00)
[2016-05-14] MEDS: ENOXAPARIN 40 MG/0.4 ML SYG SC SCH (09:02)
--- NOTE | 2016-05-14 09:43 | PN ---
Date/Time of Note Date/Time of Note DATE: 05/14/16 TIME: 09:40 Assessment/Plan VTE Prophylaxis VTE Prophylaxis Intervention: SCD's Lines/Catheters [facility] (from [facility] [place] Urinary Cath still in place: No Assessment/Plan Chief Complaint/Hosp Course Problems: Assessment/Plan Assessment * Hematochezia asymptomatic * Diverticular disease of sigmoid and descending colon * Hypoxemic respiratory failure (Improved) * Likely diastolic dysfunction with pulmonary edema * Obstructive sleep apnea * Morbid obesity * CT abdomen Diverticular disease of the descending and sigmoid colon without diverticulitis, no other gastrointestinal abnormalities are evident to suggest an additional etiology for the patient's provided history. Bibasilar subsegmental atelectasis and mild cardiomegaly. Mild hepatomegaly and hepatic steatosis Probable small calcified uterine fundal leiomyoma. Fat containing ventral/umbilical hernia. Plan * Monitor H and H Q6 transfuse 1 unit PRBC if hemoglobin is less than 7.5,2 units if hgb is less howard 7 * Planned for colonoscopy once stable Subjective 24 Hr Interval Summary Free Text/Dictation course reviewed with nursing staff * patient seen and examined * tolerating diet/no active bleeding,no melena,no hematochezia * latest hemoglobin 13.1 * episode of dyspnea , on 3 l oxygen * CT abdomen pelvis 05/11/2016 Diverticular disease of the descending and sigmoid colon without diverticulitis, no other gastrointestinal abnormalities are evident to suggest an additional etiology for the patient's provided history. Bibasilar subsegmental atelectasis and mild cardiomegaly. Mild hepatomegaly and hepatic steatosis Probable small calcified uterine fundal leiomyoma. Fat containing ventral/umbilical hernia. Exam/Review of Systems Vital Signs Vitals Vital Signs Date Time Temp Pulse Resp B/P Pulse Ox O2 Delivery O2 Flow Rate FiO2 05/14/16 08:36 82 05/14/16 08:13 98.5 20 116/46 92 05/14/16 07:58 Nasal Cannula 3.0 05/12/16 19:44 24 Intake and Output 05/13/16 05/13/16 05/14/16 15:00 23:00 07:00 Intake Total 900 ml Balance 900 ml Exam Constitutional: alert, oriented, well developed Psych: nl mood/affect, no complaints Respiratory: clear to auscultation, normal air movement Cardiovascular: nl pulses, regular rate and rhythm Gastrointestinal: bowel sounds, nl liver, spleen, non-tender, soft, No ascites, No distended, No firm, No rebound or guarding, No tender Musculoskeletal: nl extremities to inspection Neurological: nl speech Results Result Diagram: 05/14/16 0647 05/13/16 0600 Results 24 hrs Laboratory Tests Test 05/13/16 11:30 05/13/16 17:08 05/13/16 20:38 05/14/16 06:47 Bedside Glucose 113 177 114 White Blood Count 8.3 Red Blood Count 4.35 Hemoglobin 13.1 Hematocrit 45.0 Mean Corpuscular Volume 103.4 H Mean Corpuscular Hemoglobin 30.1 Mean Corpuscular Hemoglobin Concent 29.1 L Red Cell Distribution Width 13.6 Platelet Count 204 Mean Platelet Volume 11.9 H Neutrophils % 69.6 Lymphocytes % 20.1 Monocytes % 7.1 Eosinophils % 2.5 Basophils % 0.5 Nucleated Red Blood Cells % 0.0 Neutrophils # 5.8 Lymphocytes # 1.7 Monocytes # 0.6 Eosinophils # 0.2 Basophils # 0.0 Nucleated Red Blood Cells # 0.0 Magnesium Level 2.3 Test 05/14/16 07:26 Bedside Glucose 133 Medications Medications Current Medications Lorazepam (Ativan) 0.5 mg Q6H PRN IV ANXIETY; Start 05/08/16 at 21:30 Metoclopramide HCl (Reglan) 10 mg Q6H PRN IV NAUSEA AND/OR VOMITING; Start at 21:30 Nitroglycerin (Nitroglycerin (Sl Tab) 0.4 Mg) 1 tab Q5M PRN SL CHEST PAIN; Start 05/08/16 at 21:30 Acetaminophen (Tylenol Tab) 650 mg Q6H PRN PO PAIN LEVEL 1-3 OR FEVER; Start at 21:30 Acetaminophen/ Hydrocodone Bitart ([place] (5/325)) 1 tab Q6H PRN PO PAIN LEVEL 4 -6; Start 05/08/16 at 21:30 Morphine Sulfate (morphine) 2 mg Q4H PRN IV PAIN LEVEL 7-10; Start 05/08/16 at 21:30 Enoxaparin Sodium (Lovenox) 40 mg DAILY SC Last administered on 05/14/16t 09:02 ; Admin Dose 40 MG; Start 05/09/16 at 09:00 Aspirin (Halfprin) 81 mg DAILY PO Last administered on 05/14/16 09:00; Admin Dose 81 MG; Start 05/10/16 at 09:00 Lisinopril (Zestril) 5 mg DAILY PO Last administered on 05/14/16 09:00; Admin Dose 5 MG; Start 05/10/16 at 09:00 Atorvastatin Calcium (Lipitor) 40 mg HS PO Last administered on 05/13/16 20:44 ; Admin Dose 40 MG; Start 05/09/16 at 21:00 Acetazolamide (Diamox) 500 mg DAILY IV Last administered on 05/14/16 09:00; Admin Dose 500 MG; Start 05/10/16 at 10:00 Pantoprazole (Protonix Tab) 40 mg BID@,18 PO Last administered on 05/14/16 05:51; Admin Dose 40 MG; Start 05/10/16 at 18:00 Diagnostic Test (Pha) (Accu-Chek) 1 ea 02 XX ; Start 05/11/16 at 02:00 Miscellaneous Information 1 ea NOTE XX ; Start 05/10/16 at 15:30 Glucose (Glutose) 15 gm Q15M PRN PO DECREASED GLUCOSE; Start 05/10/16 at 15:30 Glucose (Glutose) 22.5 gm Q15M PRN PO DECREASED GLUCOSE; Start 05/10/16 at 15: 30 Dextrose (D50w Syringe) 25 ml Q15M PRN IV DECREASED GLUCOSE; Start 05/10/16 at 15:30 Dextrose (D50w Syringe) 50 ml Q15M PRN IV DECREASED GLUCOSE; Start 05/10/16 at 15:30 Glucagon (Glucagen) 1 mg Q15M PRN IM DECREASED GLUCOSE; Start 05/10/16 at 15:30 Glucose (Glutose) 15 gm Q15M PRN BUCCAL DECREASED GLUCOSE; Start 05/10/16 at 15 :30 GEOVANNY KENYON MD May 14, 2016 09:43
[2016-05-14 09:52] LABS: POTASSIUM 4.8 mmol/L (3.5-5.1)
[2016-05-14 09:55] LABS: CREATININE 0.79 mg/dl (0.44-1.00)
[2016-05-14 09:56] LABS: CALCIUM 8.7 mg/dl (8.4-10.2)
--- NOTE | 2016-05-14 12:17 | CONS ---
Date/Time of Note Date/Time of Note DATE: 05/14/16 TIME: 12:16 Assessment/Plan Assessment/Plan Additional Assessment/Plan Assessment and recommendations; 1. Patient admitted for massive anasarca as well as CHF with significant clinical improvement. 2. Likely underlying sleep apnea. 3. Morbid obesity. Continue current treatment. Patient will need to be assessed for home oxygen need. Consultation Date/Type/Reason Admit Date/Time May 08, 2016 at 20:03 Initial Consult Date 05/09/16 Type of Consultation: pulmonary 24 HR Interval Summary Free Text/Dictation Patient condition is stable. Reporting continuous improvement in shortness of breath. Denies any lower extremity edema. General exam; middle-aged woman currently in no distress, awake and alert. Exam/Review of Systems Vital Signs Vitals Vital Signs Date Time Temp Pulse Resp B/P Pulse Ox O2 Delivery O2 Flow Rate FiO2 05/14/16 08:36 82 05/14/16 08:13 98.5 20 116/46 92 05/14/16 07:58 Nasal Cannula 3.0 05/12/16 19:44 24 Intake and Output 05/13/16 05/13/16 05/14/16 15:00 23:00 07:00 Intake Total 900 ml Balance 900 ml Exam HEENT exam; supple neck, JVD difficult to see because of short neck. No neck masses. No lymphadenopathy. Midline trachea. Pharynx is clear. Patient has fair dentition. Chest examination; clear to auscultation bilaterally. S1-S2 audible, no murmurs. Regular rhythm. Abdomen examination; soft, protuberant. Bowel sounds audible. Nontender. Extremity exam; no peripheral edema. Pulses 1+ bilaterally. [employer] examination; no focal deficit. Results Result Diagram: 05/14/16 0647 05/14/16 0647 Results 24 hrs Laboratory Tests Test 05/13/16 17:08 05/13/16 20:38 05/14/16 06:47 05/14/16 07:26 Bedside Glucose 177 114 133 White Blood Count 8.3 Red Blood Count 4.35 Hemoglobin 13.1 Hematocrit 45.0 Mean Corpuscular Volume 103.4 H Mean Corpuscular Hemoglobin 30.1 Mean Corpuscular Hemoglobin Concent 29.1 L Red Cell Distribution Width 13.6 Platelet Count 204 Mean Platelet Volume 11.9 H Neutrophils % 69.6 Lymphocytes % 20.1 Monocytes % 7.1 Eosinophils % 2.5 Basophils % 0.5 Nucleated Red Blood Cells % 0.0 Neutrophils # 5.8 Lymphocytes # 1.7 Monocytes # 0.6 Eosinophils # 0.2 Basophils # 0.0 Nucleated Red Blood Cells # 0.0 Sodium Level 136 Potassium Level 4.8 Chloride Level 101 Carbon Dioxide Level 28 Anion Gap 12 Blood Urea Nitrogen 28 H Creatinine 0.79 Glucose Level 135 Calcium Level 8.7 Magnesium Level 2.3 Test 05/14/16 11:31 Bedside Glucose 192 Medications Medications Current Medications Lorazepam (Ativan) 0.5 mg Q6H PRN IV ANXIETY; Start 05/08/16 at 21:30 Metoclopramide HCl (Reglan) 10 mg Q6H PRN IV NAUSEA AND/OR VOMITING; Start at 21:30 Nitroglycerin (Nitroglycerin (Sl Tab) 0.4 Mg) 1 tab Q5M PRN SL CHEST PAIN; Start 05/08/16 at 21:30 Acetaminophen (Tylenol Tab) 650 mg Q6H PRN PO PAIN LEVEL 1-3 OR FEVER; Start at 21:30 Acetaminophen/ Hydrocodone Bitart ([place] (5/325)) 1 tab Q6H PRN PO PAIN LEVEL 4 -6; Start 05/08/16 at 21:30 Morphine Sulfate (morphine) 2 mg Q4H PRN IV PAIN LEVEL 7-10; Start 05/08/16 at 21:30 Enoxaparin Sodium (Lovenox) 40 mg DAILY SC Last administered on 05/14/16 09:02 ; Admin Dose 40 MG; Start 05/09/16 at 09:00 Aspirin (Halfprin) 81 mg DAILY PO Last administered on 05/14/16 09:00; Admin Dose 81 MG; Start 05/10/16 at 09:00 Lisinopril (Zestril) 5 mg DAILY PO Last administered on 05/14/16 09:00; Admin Dose 5 MG; Start 05/10/16 at 09:00 Atorvastatin Calcium (Lipitor) 40 mg HS PO Last administered on 05/13/16 20:44 ; Admin Dose 40 MG; Start 05/09/16 at 21:00 Acetazolamide (Diamox) 500 mg DAILY IV Last administered on 05/14/16 09:00; Admin Dose 500 MG; Start 05/10/16 at 10:00 Pantoprazole (Protonix Tab) 40 mg BID@,18 PO Last administered on 05/14/16t 05:51; Admin Dose 40 MG; Start 05/10/16 at 18:00 Diagnostic Test (Pha) (Accu-Chek) 1 ea 02 XX ; Start 05/11/16 at 02:00 Miscellaneous Information 1 ea NOTE XX ; Start 05/10/16 at 15:30 Glucose (Glutose) 15 gm Q15M PRN PO DECREASED GLUCOSE; Start 05/10/16 at 15:30 Glucose (Glutose) 22.5 gm Q15M PRN PO DECREASED GLUCOSE; Start 05/10/16 at 15: 30 Dextrose (D50w Syringe) 25 ml Q15M PRN IV DECREASED GLUCOSE; Start 05/10/16 at 15:30 Dextrose (D50w Syringe) 50 ml Q15M PRN IV DECREASED GLUCOSE; Start 05/10/16 at 15:30 Glucagon (Glucagen) 1 mg Q15M PRN IM DECREASED GLUCOSE; Start 05/10/16 at 15:30 Glucose (Glutose) 15 gm Q15M PRN BUCCAL DECREASED GLUCOSE; Start 05/10/16 at 15 :30 FEDE MCGRATH May 14, 2016 12:17
[2016-05-14] MEDS ORDERED: PANT40TA4 PO (12:31)
[2016-05-14] MEDS ORDERED: FURO-110 PO (12:31)
[2016-05-14] MEDS ORDERED: ASPI-664 PO (12:31)
[2016-05-14] MEDS ORDERED: ATOR40TA68 PO (12:31)
[2016-05-14] MEDS ORDERED: ALBU18HF INHALATION (12:31)
[2016-05-14] MEDS ORDERED: LISI-313 PO (13:27)
--- NOTE | 2016-05-14 13:34 | PDOCDIS ---
Discharge Instructions DIAGNOSIS Discharge Diagnosis: 1. Acute respiratory failure from underlying CHF 2. Elevated troponin CONDITION Patient Condition: Stable HOME CARE INSTRUCTIONS: Diet Instructions: Low Fat /CholesterolSpecial Diet: cardiac,carb control, reduced calorie FOLLOW UP/APPOINTMENTS Appointments 1. Follow up with Dr. Elena Ramírez in one week 2. Follow up with your primary care provider in 1-2 weeks DIANA HERMOSILLO May 14, 2016 13:34
--- NOTE | 2016-05-14 17:12 | PN ---
DATE: 05/14/2016 CARDIOLOGY FOLLOWUP SUBJECTIVE: No new cardiac event. No chest pain or pressure. No palpitation. The patient is able to walk around with no discomfort. MEDICATIONS: Reviewed. PHYSICAL EXAMINATION: VITAL SIGNS: Temperature 98.5, heart rate of 68, blood pressure 106/54, respiratory rate of 20. HEENT: Normocephalic, atraumatic. Obese female, no acute distress. Pupils are equal. CARDIOVASCULAR: Regular rate and rhythm, systolic murmur. PULMONARY: With no wheezes heard. GASTROINTESTINAL: Soft, nontender. EXTREMITIES: Trivial edema. NEUROLOGIC: Awake and alert. PSYCHIATRIC: Appears to be calm. LABORATORY DATA: WBC of 8.3, hemoglobin 13.1, platelets of 204. Sodium 136, potassium 4.8, BUN of 28, creatinine 0.79, glucose of 135. ASSESSMENT AND PLAN: 1. Mildly abnormal troponin, most likely false/positive troponin, on medical therapy. 2. Coronary artery disease, history of myocardial infarction. 3. History of percutaneous coronary intervention. 4. Poor compliance. 5. History of pulmonary hypertension. 6. Diabetes. 7. Hypertension. 8. Morbid obesity. 9. Sinus bradycardia. RECOMMENDATIONS: We will continue with the current cardiac care. Continue respiratory care. Disch arge planning once okay from internal medicine standpoint. No contraindication from the cardiac sta ndpoint for GI workup such as EGD, colonoscopy. Dictated By: FAAHD SIERRA MD AV/GREG Conf#: [id number] DID#: [id number] CC: ;*EndCC*
== END 2016-05-14 18:27 | disposition home or self-care (01) | DRG 291 ==
LOC: E/R 12:47 → MS4 20:03
PROVIDERS: ADMIT Family Medicine; ATTEND Family Medicine
DX: I11.0 Hypertensive heart disease with heart failure (principal); J96.01 Acute respiratory failure with hypoxia; J96.02 Acute respiratory failure with hypercapnia; Z68.42 Body mass index [BMI] 45.0-49.9, adult; E66.01 Morbid (severe) obesity due to excess calories; I27.2 Other secondary pulmonary hypertension; K92.1 Melena; J98.11 Atelectasis; I50.33 Acute on chronic diastolic (congestive) heart failure; I25.10 Atherosclerotic heart disease of native coronary artery without angina pectoris; G47.33 Obstructive sleep apnea (adult) (pediatric); E78.5 Hyperlipidemia, unspecified; E11.9 Type 2 diabetes mellitus without complications; K43.9 Ventral hernia without obstruction or gangrene; I25.2 Old myocardial infarction; K57.30 Diverticulosis of large intestine without perforation or abscess without bleeding; R00.1 Bradycardia, unspecified; Z95.5 Presence of coronary angioplasty implant and graft; Z91.14 Patient's other noncompliance with medication regimen; Z79.82 Long term (current) use of aspirin; Z79.1 Long term (current) use of non-steroidal anti-inflammatories (NSAID); Z79.891 Long term (current) use of opiate analgesic; Z79.02 Long term (current) use of antithrombotics/antiplatelets
CPT/HCPCS: 36415; 36600; 71010; 74176; 80048; 80053; 80061; 82270; 82550; 82553; 82803; 82962; 83036; 83735; 83880; 84100; 84439; 84443; 84484; 85025; 85610; 85730; 93005; 93306; 94640; 94644; 94660; 94664; 96374; 96376; J1120; J1650; J1815; J1940

== ENCOUNTER 2016-09-17 13:17 | Emergency (ER) | payer MEDICAID ==
[~2016-09-17] VITALS: Ht 160 cm; Wt 90.0 kg
[~2016-09-17 13:17] MED LIST changes: +ALBU18HF INHALATION; -ATOR20TA38 PO; +ATOR40TA68 PO; -CARV3.12 PO; -CYCL-319 PO; +FURO-110 PO; -FURO20TA3 PO; -HYDR-902 PO; -IBUP800T25 PO; +LISI-313 PO; -LISI-524 PO; +PANT40TA4 PO; -SPIR25TA PO; -TICA90TA PO
[2016-09-17 13:19] VITALS: Ht 160 cm; Wt 90.0 kg
--- NOTE | 2016-09-17 13:44 | ERD ---
ER Documentation Chief Complaint Date/Time DATE: 09/17/16 TIME: 13:42 Chief Complaint right foot pain, twisted week ago HPI Patient is a 56-year-old female who presents with right foot and ankle pain after she twisted it 1 week ago. She states there was swelling but the swelling is not going down but she continues to have pain when she ambulates. Pain is throbbing nonradiating 8 out of 10. She ambulates with a walker which is her baseline. She denies any numbness or tingling. ROS All systems reviewed and are negative except as per history of present illness. Medications Home Meds Active Scripts Lisinopril* (Lisinopril*) 5 Mg Tablet, 5 MG PO DAILY for 30 Days, TAB Prov:DIANA HERMOSILLO 05/14/16 Albuterol Sulfate* (Ventolin HFA*) 18 Gm Hfa.aer.ad, 2 PUFF INHALATION Q4H, #1 INHALER Prov:DIANA HERMOSILLO 05/14/16 Furosemide* (Lasix*) 20 Mg Tablet, 20 MG PO DAILY for 30 Days, TAB Prov:REGDIANA RAMESH 05/14/16 Pantoprazole* (Pantoprazole*) 40 Mg Tablet.dr, 40 MG PO BID@06,18, #60 Prov:DIANA HERMOSILLO 05/14/16 Atorvastatin* (Atorvastatin*) 40 Mg Tablet, 40 MG PO HS for 30 Days, TAB Prov:DIANA HERMOSILLO 05/14/16 Aspirin* (Aspirin* EC) 81 Mg Tablet.dr, 81 MG PO DAILY for 30 Days Prov:DIANA HERMOSILLO 05/14/16 Allergies Allergies: Coded Allergies: No Known Allergy (Unverified , 05/08/16) PMhx/Soc History of Surgery: No Anesthesia Reaction: No Hx Neurological Disorder: No Hx Respiratory Disorders: No Hx Cardiac Disorders: Yes (HTN) Hx Psychiatric Problems: No Hx Miscellaneous Medical Probl: No Hx Alcohol Use: No Hx Substance Use: No Hx Tobacco Use: No FmHx Family History: No diabetes Physical Exam Vitals Vital Signs Date Time Temp Pulse Resp B/P Pulse Ox O2 Delivery O2 Flow Rate FiO2 09/17/16 13:19 98.1 86 18 149/76 99 Physical Exam INITIAL VITAL SIGNS: Reviewed by me GENERAL: Awake, alert and oriented x 4, well appearing, nontoxic, speaking in full sentences. No acute distress, obese HEAD: Atraumatic RESPIRATORY: Clear to auscultation bilaterally. Symmetric chest wall rise. No wheezing or rales. No accessory muscle use. CV: Regular rate and rhythm. No murmurs, rubs, or gallops. EXTREMITIES: No clubbing or cyanosis. No edema. Moving all extremities normally. Right ankle has 1+ edema, no bony abnormalities, tender to palpation over the lateral malleolus, pedal pulse 2+, capillary refill less than 2 seconds , sensation to light touch intact Procedures/MDM Patient has right foot and ankle pain after trauma. She is ambulatory neurovascular intact. X-rays of the ankle and foot were obtained. X-ray shows distal fibular fracture. Patient was placed in a splint and given prescription for pain medication, crutches, outpatient referral to orthopedics and copy of x- ray reports. Patient counseled regarding my diagnostic impression and care plan. Prior to discharge all questions answered. Pt agrees with treatment plan and understands strict return precautions. Pt is instructed to follow up with primary care provider within 24-48 hours. Precautionary instructions provided including instructions to return to the ER if not improving or for any worsening or changing symptoms or concerns. Departure Diagnosis: Primary Impression: Closed fibular fracture Condition: Stable ALYX STORM PA-C Sep 17, 2016 13:44
--- NOTE | 2016-09-17 14:39 | RADRPT ---
PROCEDURE: XR Foot. CLINICAL INDICATION: Trauma TECHNIQUE: Three views of the right foot are available for review. COMPARISON: None available FINDINGS: There is a minimally displaced distal fibular fracture. Bone mineral density is preserved. The lizzy cular surfaces are smooth without evidence of marginal erosions. An os peroneum is present. Enthesop athic changes seen at the plantar fascia origin. Marked soft tissue swelling at the dorsum of the m idfoot. IMPRESSION: 1. Minimally displaced distal fibular fracture. 2. Marked soft tissue swelling of the dorsum of the midfoot. RPTAT: TT .Josh Mckenna MD, Date Time Electronically viewed and signed by .Josh Mckenna MD, on 09/17/2016 14:38 .d/
--- NOTE | 2016-09-17 14:40 | RADRPT ---
PROCEDURE: XR Ankle. CLINICAL INDICATION: Trauma TECHNIQUE: Three views of the right ankle are available for review COMPARISON: None available FINDINGS: There is a mildly displaced distal fibular fracture . The ankle mortise is otherwise preserved. No additional fractures are seen. Os peroneum. Enthesopathic changes are present at the plantar fasci a origin. There is marked soft tissue swelling over the ankle and dorsum of the midfoot. IMPRESSION: 1. Minimally displaced distal fibular fracture above the syndesmosis. 2. Marked soft tissue swelling. RPTAT: TT .Josh Mckenna MD, Date Time Electronically viewed and signed by .Josh Mckenna MD, on 09/17/2016 14:39 .d/
[2016-09-17] MEDS ORDERED: HYDR-906 PO (14:55)
[2016-09-17] MEDS ORDERED: IBUP-1542 PO (14:55)
[2016-09-17] MEDS ORDERED: HYDROCODONE/APAP (5/325) TAB PO ONE (15:00)
== END 2016-09-17 15:46 | disposition home or self-care (01) ==
LOC: FTE 13:17
DX: S82.831A Other fracture of upper and lower end of right fibula, initial encounter for closed fracture (principal); I10 Essential (primary) hypertension; X50.1XXA Overexertion from prolonged static or awkward postures, initial encounter; Y92.9 Unspecified place or not applicable; Z79.82 Long term (current) use of aspirin
CPT/HCPCS: 29505; 73610; 73630; Z7502; Z7610

== ENCOUNTER 2018-10-27 12:02 | Emergency (ER) | payer MEDICAID ==
[~2018-10-27] VITALS: Wt 103.6 kg
[~2018-10-27 12:02] MED LIST changes: -ASPI-664 PO; +ASPI-817 PO; +CYCL5TAB PO; +HYDR-4011 PO; +IBUP-1542 PO
[2018-10-27 12:12] VITALS: BP 144/80; PULSE 64; RESP 20
[2018-10-27] MEDS ORDERED: KETOROLAC 30 MG INJ IM STA (14:03)
== END 2018-10-27 14:56 | disposition home or self-care (01) ==
LOC: FTE 12:02
DX: M54.5 Low back pain (principal); I10 Essential (primary) hypertension; R11.0 Nausea; R20.0 Anesthesia of skin; R06.02 Shortness of breath; Z79.82 Long term (current) use of aspirin
CPT/HCPCS: 81001; 96372; J1885; Z7502; 81003